=== PATIENT | male | born 1955 | race Two or more races ===

== ENCOUNTER 2016-07-19 20:26 | Inpatient (IN) | payer MEDICAID ==
[~2016-07-19] VITALS: Ht 175.3 cm; Wt 80.3 kg
[2016-07-19] MEDS ORDERED: IV NS 0.9% 1,000 ML BAG IV ONE ×2 (21:00→22:30)
[2016-07-19 21:12] LABS: ADD UA MICROSCOPIC YES; KETONES,URINE Negative (NEGATIVE); LEUKOCYTE ESTERASE ,URINE Large (NEGATIVE)
[2016-07-19 21:22] LABS: ADD URINE CULTURE YES; RBC,URINE 21-50 /HPF (0-2); WBC,URINE 51-80 /HPF (0-3)
[2016-07-19 22:22] LABS: BASOPHILS # (AUTO) 0.1 /CMM (0.0-0.2); BASOPHILS % (AUTO) 0.7 % (0.0-2.0); DIFF TOTAL % 100 %; EOSINOPHILS # (AUTO) 0.1 /CMM (0.0-0.7); EOSINOPHILS % (AUTO) 0.8 % (0.0-6.0); HEMATOCRIT 40 % (39-51); HEMOGLOBIN 12.9 g/dL (13.5-17.5); LYMPHOCYTES # (AUTO) 2.7 /CMM (0.8-4.8); LYMPHOCYTES % (AUTO) 24.9 % (20.0-44.0); MEAN CORPUSCULAR HEMOGLOBIN 24 PG (26.0-33.0); MEAN CORPUSCULAR HGB CONC 32 g/dl (31.0-36.0); MEAN CORPUSCULAR VOLUME 75 fL (80-96); MONOCYTES # (AUTO) 0.8 /CMM (0.1-1.30); MONOCYTES % (AUTO) 7.2 % (2.0-12.0); NEUTROPHILS # (AUTO) 7.2 /CMM (1.8-8.9); NEUTROPHILS % (AUTO) 66.4 % (43.0-81.0); PLATELET COUNT (AUTO) 422 /CMM (150-450); RED BLOOD CELL COUNT(AUTO) 5.36 MIL/uL (4.5-6.0); WHITE BLOOD COUNT (AUTO) 10.9 K/uL (4.3-11.0)
[2016-07-19] MEDS ORDERED: IV NS 0.9% 250 ML IV ONE (22:27)
[2016-07-19] MEDS ORDERED: CEFTRIAXONE 1GM BAG (ER ONLY) 0 ML IV ONE (22:27)
[2016-07-19] MEDS ORDERED: IV SET PRIMARY 1 EA INFUS.SET MC ONE (22:27)
[2016-07-19] MEDS ORDERED: IV NS 0.9% 1,000 ML ONE (22:27)
[2016-07-19] MEDS ORDERED: VANCOMYCIN 1 GM VIAL ONE (22:27)
[2016-07-19] MEDS ORDERED: IV SET PRIMARY PUMP SET 1 EA INFUS.SET MC ONE (22:28)
[2016-07-19] MEDS ORDERED: CEFTRIAXONE 1GM BAG (ER ONLY) 50 ML IV ONE (22:30)
[2016-07-19] MEDS ORDERED: VANCOMYCIN 1 GM in IV D5W 250 ML IV ONE ×2 (22:30→23:00)
[2016-07-19 22:48] LABS: CALCIUM, SERUM 8.4 mg/dL (8.5-10.1); CREATININE 0.9 mg/dL (0.6-1.3); POTASSIUM 3.2 mmol/L (3.5-5.1)
[2016-07-19] MEDS ORDERED: CIPROFLOXACIN IV RTU 200 ML IV ONE (22:50)
[2016-07-19 22:57] LABS: LACTIC ACID 2.7 mmol/L (0.4-2.0)
[2016-07-19 23:00] VITALS: BP 115/73
[2016-07-19] MEDS ORDERED: CIPROFLOXACIN IV RTU 400 MG in PREMIX 1 EA IV ONE (23:00)
[2016-07-19 23:29] LABS: *LACTIC ACID REFLEX FLAG YES
[2016-07-20] MEDS ORDERED: MAGNESIUM HYDROXIDE 30 ML UDC PO PRN
[2016-07-20] MEDS ORDERED: ZOLPIDEM TARTRATE 5 MG TABLET PO PRN
[2016-07-20] MEDS ORDERED: ONDANSETRON HCL/PF 4 MG/2 ML VIAL IVP PRN
[2016-07-20] MEDS ORDERED: MAG HYDROX/AL HYDROX/SIMETH 30 ML UDC PO PRN
[2016-07-20] MEDS ORDERED: HYDROCODONE/APAP 5/325MG 1 EACH TABLET PO PRN
[2016-07-20] MEDS ORDERED: ENOXAPARIN SODIUM 40 MG/0.4 ML DISP.SYRIN SQ SCH
[2016-07-20] MEDS ORDERED: Z GUARD REMEDY 2 OZ OINT TP PRN
[2016-07-20] MEDS ORDERED: ACETAMINOPHEN 325 MG TABLET PO PRN
[2016-07-20] MEDS ORDERED: ENOXAPARIN SODIUM 40 MG/0.4 ML DISP.SYRIN SQ ONE (00:30)
[2016-07-20] MEDS ORDERED: IV D5W 250 ML IV ONE (00:53)
[2016-07-20] MEDS ORDERED: IV NS 0.9% 1,000 ML ONE (00:54)
[2016-07-20] MEDS ORDERED: SECONDARY IV SET 1 EA INFUS.SET MC ONE ×4 (00:56→20:05)
[2016-07-20] MEDS: IV NS 0.9% 1,000 ML IV PRN ×2 (02:02→15:02)
[2016-07-20] MEDS ORDERED: AMLO10TA2 PO (03:08)
[2016-07-20] MEDS ORDERED: ZINC220T PO (03:08)
[2016-07-20] MEDS ORDERED: ARGI1POW13 PO (03:08)
[2016-07-20] MEDS ORDERED: MAGN400O6 PO (03:08)
[2016-07-20] MEDS ORDERED: INSU100C10 SQ (03:08)
[2016-07-20] MEDS ORDERED: MULT1CAP34 PO (03:08)
[2016-07-20] MEDS ORDERED: ASCO500T9 PO (03:08)
[2016-07-20] MEDS ORDERED: ACET-868 PO (03:08)
[2016-07-20] MEDS ORDERED: FERR-58 PO (03:08)
[2016-07-20] MEDS ORDERED: OMEG500C PO (03:08)
[2016-07-20] MEDS ORDERED: METF-835 PO (03:08)
[2016-07-20] MEDS ORDERED: BISA10SU8 RC (03:08)
[2016-07-20] MEDS ORDERED: CRAN500C5 PO (03:08)
[2016-07-20] MEDS ORDERED: SITA100T PO (03:08)
[2016-07-20] MEDS ORDERED: NA P133E RC (03:08)
[2016-07-20] MEDS ORDERED: HYDR-3326 PO ×2 (03:08)
[2016-07-20] MEDS ORDERED: AMIN30LI2 PO (03:08)
[2016-07-20] MEDS ORDERED: GLIM2TAB2 PO (03:08)
[2016-07-20] MEDS ORDERED: BACL20TA PO (03:08)
[2016-07-20] MEDS ORDERED: BISACODYL SUPP (10 MG) 10 MG/SUPP.RECT SUPP.RECT RC PRN (07:30)
[2016-07-20] MEDS: PANTOPRAZOLE 40 MG TABLET.DR PO SCH (07:30)
[2016-07-20 08:00] VITALS: BP 100/55
[2016-07-20] MEDS: ASCORBIC ACID 500 MG TABLET PO SCH (09:00)
[2016-07-20] MEDS: AMLODIPINE BESYLATE 10 MG TABLET PO SCH (09:00)
[2016-07-20] MEDS: FERROUS SULFATE (325 MG) 325 MG/TAB TABLET PO SCH (09:00)
[2016-07-20 12:11] LABS: BASOPHILS # (AUTO) 0.1 /CMM (0.0-0.2); BASOPHILS % (AUTO) 0.9 % (0.0-2.0); DIFF TOTAL % 100 %; EOSINOPHILS # (AUTO) 0.2 /CMM (0.0-0.7); EOSINOPHILS % (AUTO) 3.7 % (0.0-6.0); HEMATOCRIT 37 % (39-51); LYMPHOCYTES # (AUTO) 2.2 /CMM (0.8-4.8); LYMPHOCYTES % (AUTO) 32.8 % (20.0-44.0); MEAN CORPUSCULAR HEMOGLOBIN 24 PG (26.0-33.0); MEAN CORPUSCULAR HGB CONC 33 g/dl (31.0-36.0); MEAN CORPUSCULAR VOLUME 74 fL (80-96); MONOCYTES # (AUTO) 0.8 /CMM (0.1-1.30); MONOCYTES % (AUTO) 11.5 % (2.0-12.0); NEUTROPHILS # (AUTO) 3.4 /CMM (1.8-8.9); NEUTROPHILS % (AUTO) 51.1 % (43.0-81.0); PLATELET COUNT (AUTO) 399 /CMM (150-450); RED BLOOD CELL COUNT(AUTO) 4.94 MIL/uL (4.5-6.0); WHITE BLOOD COUNT (AUTO) 6.6 K/uL (4.3-11.0)
[2016-07-20 12:26] LABS: ANISOCYTOSIS 2+; BAND % (MANUAL) 2 % (0.0-5.0); EOSINOPHILS % (MANUAL) 4 % (0-4); LYMPHOCYTES % (MANUAL) 32 % (16-48); PLATELET ESTIMATE INCREASED
[2016-07-20 12:27] LABS: HYPOCHROMASIA 1+; MICROCYTOSIS 2+
[2016-07-20 12:29] LABS: CREATININE 0.7 mg/dL (0.6-1.3); PHOSPHORUS 3.1 mg/dL (2.5-4.9); POTASSIUM 2.9 mmol/L (3.5-5.1)
[2016-07-20] MEDS: HYDROGEL DRESSING 90 GM TUBE TP SCH (14:00)
[2016-07-20] MEDS ORDERED: HYDROGEL DRESSING 90 GM TUBE TP PRN (14:00)
[2016-07-20] MEDS: CIPROFLOXACIN IV RTU 400 MG in PREMIX 1 EA IV SCH ×4 (15:03→23:32)
[2016-07-20] MEDS ORDERED: POTASSIUM CHLORIDE 20 MEQ TAB.PRT.SR PO ONE (15:30)
[2016-07-20 16:00] VITALS: BP 101/59
[2016-07-20] MEDS ORDERED: DEXTROSE 50%-WATER 50 ML DISP.SYRIN IV PRN (16:30)
[2016-07-20] MEDS ORDERED: Magnesium 1GM/D5W 100ML PREMIX 100 ML IV ONE (17:00)
[2016-07-20] MEDS: BLOOD SUGAR DIAGNOSTIC 1 EACH STRIP IN SCH ×2 (17:30→21:18)
[2016-07-20 20:00] VITALS: BP 112/68
[2016-07-20] MEDS ORDERED: IV SET PRIMARY PUMP SET 1 EA INFUS.SET MC ONE (20:04)
[2016-07-20] MEDS ORDERED: IV NS 0.9% 250 ML IV ONE (20:05)
[2016-07-20] MEDS: POTASSIUM CL. PREMIX PERIPHER. 50 ML IV SCH ×3 (20:10→23:49)
[2016-07-20] MEDS: ENOXAPARIN SODIUM 40 MG/0.4 ML DISP.SYRIN SQ SCH (20:44)
[2016-07-20] MEDS: INSULIN REGULAR, HUMAN 100 UNIT/ML 3 ML VIAL SQ PRN (21:19)
[2016-07-21] MEDS: POTASSIUM CL. PREMIX PERIPHER. 50 ML IV SCH (01:16)
[2016-07-21] MEDS: BLOOD SUGAR DIAGNOSTIC 1 EACH STRIP IN SCH ×5 (06:27→22:37)
[2016-07-21 07:18] LABS: BASOPHILS # (AUTO) 0.1 /CMM (0.0-0.2); BASOPHILS % (AUTO) 1.1 % (0.0-2.0); DIFF TOTAL % 100 %; EOSINOPHILS # (AUTO) 0.3 /CMM (0.0-0.7); EOSINOPHILS % (AUTO) 5.6 % (0.0-6.0); HEMATOCRIT 41 % (39-51); HEMOGLOBIN 13.3 g/dL (13.5-17.5); LYMPHOCYTES # (AUTO) 2.3 /CMM (0.8-4.8); MEAN CORPUSCULAR HEMOGLOBIN 24 PG (26.0-33.0); MEAN CORPUSCULAR HGB CONC 33 g/dl (31.0-36.0); MEAN CORPUSCULAR VOLUME 74 fL (80-96); MONOCYTES # (AUTO) 0.5 /CMM (0.1-1.30); MONOCYTES % (AUTO) 8.5 % (2.0-12.0); NEUTROPHILS # (AUTO) 2.8 /CMM (1.8-8.9); NEUTROPHILS % (AUTO) 45.8 % (43.0-81.0); PLATELET COUNT (AUTO) 256 /CMM (150-450); RED BLOOD CELL COUNT(AUTO) 5.53 MIL/uL (4.5-6.0)
[2016-07-21] MEDS: PANTOPRAZOLE 40 MG TABLET.DR PO SCH ×2 (07:30→15:44)
[2016-07-21 08:00] VITALS: BP 116/72
[2016-07-21] MEDS: FERROUS SULFATE (325 MG) 325 MG/TAB TABLET PO SCH ×2 (09:00→15:44)
[2016-07-21] MEDS: ASCORBIC ACID 500 MG TABLET PO SCH ×2 (09:00→15:45)
[2016-07-21] MEDS: HYDROGEL DRESSING 90 GM TUBE TP SCH (09:00)
[2016-07-21] MEDS: AMLODIPINE BESYLATE 10 MG TABLET PO SCH ×2 (09:00→15:44)
[2016-07-21] MEDS: NITROFURANTOIN/NITROFURAN MAC 100 MG CAPSULE PO SCH ×2 (11:57→15:43)
[2016-07-21 16:00] VITALS: BP 134/77
[2016-07-21] MEDS ORDERED: IV NS 0.9% 1,000 ML IV PRN (16:14)
[2016-07-21] MEDS ORDERED: DOSING PER PHARMACY-AMIKACI IV XX PRN (17:00)
[2016-07-21] MEDS: INSULIN REGULAR, HUMAN 100 UNIT/ML 3 ML VIAL SQ PRN (17:07)
[2016-07-21] MEDS ORDERED: FEE PK DOSING 1 MIN EA MC ONE (17:16)
[2016-07-21] MEDS ORDERED: AMIKACIN 1,000 MG in IV D5W 100 ML IV SCH (18:00)
[2016-07-21] MEDS ORDERED: SECONDARY IV SET 1 EA INFUS.SET MC ONE (18:10)
[2016-07-21] MEDS: LINEZOLID 600 MG TABLET PO SCH (21:01)
[2016-07-21] MEDS: ENOXAPARIN SODIUM 40 MG/0.4 ML DISP.SYRIN SQ SCH (21:02)
[2016-07-22] MEDS: INSULIN REGULAR, HUMAN 100 UNIT/ML 3 ML VIAL SQ PRN (06:12)
[2016-07-22] MEDS: BLOOD SUGAR DIAGNOSTIC 1 EACH STRIP IN SCH ×2 (06:39→12:00)
[2016-07-22 08:00] VITALS: BP 112/67
[2016-07-22] MEDS: PANTOPRAZOLE 40 MG TABLET.DR PO SCH (08:27)
[2016-07-22 09:00] VITALS: BP 121/67
[2016-07-22] MEDS: ASCORBIC ACID 500 MG TABLET PO SCH (09:00)
[2016-07-22] MEDS: AMLODIPINE BESYLATE 10 MG TABLET PO SCH (09:00)
[2016-07-22] MEDS: FERROUS SULFATE (325 MG) 325 MG/TAB TABLET PO SCH (09:00)
[2016-07-22] MEDS: LINEZOLID 600 MG TABLET PO SCH (09:00)
[2016-07-22] MEDS ORDERED: ACET-868 PO (10:30)
[2016-07-22] MEDS ORDERED: AMIK250V14 IJ (10:30)
[2016-07-22] MEDS ORDERED: LINE600I9 IV (10:30)
[2016-07-22] MEDS ORDERED: HYDR-3326 PO (10:30)
[2016-07-22] MEDS ORDERED: LACTOBACILLUS RHAMNOSUS GG 1 EACH CAP.SPRINK PO SCH (17:00)
== END 2016-07-22 13:38 | DRG 720 ==
LOC: ER 20:31 → MED 22:29
PROVIDERS: ADMIT Internal Medicine; ATTEND Internal Medicine
DX: A41.9 Sepsis, unspecified organism (principal); L89.159 Pressure ulcer of sacral region, unspecified stage; J18.9 Pneumonia, unspecified organism; E11.22 Type 2 diabetes mellitus with diabetic chronic kidney disease; N39.0 Urinary tract infection, site not specified; I12.9 Hypertensive chronic kidney disease with stage 1 through stage 4 chronic kidney disease, or unspecified chronic kidney disease; N18.9 Chronic kidney disease, unspecified; R65.20 Severe sepsis without septic shock; D63.8 Anemia in other chronic diseases classified elsewhere; B96.89 Other specified bacterial agents as the cause of diseases classified elsewhere; E78.5 Hyperlipidemia, unspecified; Z88.1 Allergy status to other antibiotic agents; E87.6 Hypokalemia; Z79.4 Long term (current) use of insulin; B96.20 Unspecified Escherichia coli [E. coli] as the cause of diseases classified elsewhere; N31.9 Neuromuscular dysfunction of bladder, unspecified
CPT/HCPCS: 36415; 71010-TC; 80048-TC; 81000-TC; 82962-TC; 83605-TC; 83735-TC; 84100-TC; 85025-TC; 87040-TC; 87081-TC; 87086-TC; 87186-TC; A4216; A4606; A6248; A6253; A6403; J0278; J0696; J0744; J1650; J1815; J3370; J3475; J3480; J7030; J7050; J7060; Z7610

== ENCOUNTER 2018-06-05 18:30 | Inpatient (IN) | payer MEDICAID ==
[~2018-06-05] VITALS: Ht 165.1 cm; Wt 79.5 kg
[~2018-06-05 18:30] MED LIST: ACET-868 PO; AMIK250V14 IJ; AMIN30LI2 PO; AMLO10TA6 PO; ARGI1POW13 PO; ASCO500T9 PO; BACL20TA PO; BISA10SU8 RC; CRAN500C5 PO; FERR325T27 PO; GLIM2TAB2 PO; HYDR-3974 PO; INSU100C10 SQ; LINE600I9 IV; MAGN400O6 PO; METF-835 PO; MULT1CAP34 PO; NA P133E RC; OMEG500C PO; SITA100T PO; ZINC220T PO
--- NOTE | 2018-06-05 18:40 | NUR ---
BIB RA FROM SNF 63 YEAR OLD MALE C/O SUPRAPUBIC DISLODGED SINCE 2:30PM AND PAINFUL URINATION. ALERT AND ORIENTED X4, BREATHING EVEN AND UNLABORED WITH NO DISTRESS NOTED. SKIN WARM TO TOUCH, AWAITING TO BE SEEN BY
--- NOTE | 2018-06-05 19:10 | NUR ---
REINSERT SUPRAPUBIC CATH WITH CHARGE NURSE, URINE AMOUNT OF 400ML. PATIENT REFUSED LABS AND URINE SAMPLE.
--- NOTE | 2018-06-05 19:10 | NUR ---
Olegario londono in EDM - 06/05/18 at 1936 by DELORIS YESY SUPRAPUBIC CATH, CONTINUE TO MONITOR URINE AMOUNT. SAMPLE TAKEN AND SENT TO LAB.
--- NOTE | 2018-06-05 19:22 | NUR ---
PT REFUSED LABS. NOTIFIED
--- NOTE | 2018-06-05 19:26 | NUR ---
PATIENT REFUSED LAB DRAW AND URINE SAMPLE COLLECTIONS. RADU MENCHACA MADE AWARE
--- NOTE | 2018-06-05 19:30 | NUR ---
PT STATED THAT HE FELT TOO HOT. BLANKET REMOVED AND PT HAS A SHEET COVERING HIM.
--- NOTE | 2018-06-05 19:31 | NUR ---
CALLED [facility] FOR TRANSPORT ETA OF 2100 WAS GIVEN. TRIP#[id number]
--- NOTE | 2018-06-05 19:37 | NUR ---
PATIENT REMAINS STABLE WITH NO DISTRESS NOTED.
--- NOTE | 2018-06-05 19:45 | NUR ---
PT REC'D COLD WATER REQUESTED.
--- NOTE | 2018-06-05 21:04 | NUR ---
CALLED [facility] TO ASK FOR UPDATED ETA. UPDATED ETA IS 1919
--- NOTE | 2018-06-05 21:17 | NUR ---
[facility] ARRIVED AND PT'S BP IS NOW READING 80/49. BP WAS CHECKED A FEW TIMES.
--- NOTE | 2018-06-05 21:26 | NUR ---
B PAWEL ANDERSON NOTIFIED THAT PT IS HYPOTENSIVE. B PAWEL ANDERSON IS AT THE BEDSIDE.
--- NOTE | 2018-06-05 21:33 | NUR ---
Chapo ANDERSON PA-C IS SPEAKING TO DR. STEPHENS.
[2018-06-05] MEDS ORDERED: IV NS 0.9% 1,000 ML BAG IV ONE ×2 (22:00→23:00)
--- NOTE | 2018-06-05 22:03 | NUR ---
20G IV STARTED IN [facility] BY ALEJANDRO ZEPEDA. STRAIGHT LINE EDGER IS AT THE BEDSIDE BLOOD CULTURES X 2 DRAWN AND BLOOD SAMPLES DRAWN. URINE SAMPLE SENT TO THE LAB.
[2018-06-05 22:23] LABS: BASOPHILS # (AUTO) 0.2 /CMM (0.0-0.2); BASOPHILS % (AUTO) 1.4 % (0.0-2.0); EOSINOPHILS % (AUTO) 1.1 % (0.0-6.0); HEMATOCRIT 45 % (39-51); HEMOGLOBIN 14.6 g/dL (13.5-17.5); LYMPHOCYTES # (AUTO) 2.4 /CMM (0.8-4.8); LYMPHOCYTES % (AUTO) 14.6 % (20.0-44.0); MEAN CORPUSCULAR HGB CONC 33 g/dl (31.0-36.0); MEAN CORPUSCULAR VOLUME 87 fL (80-96); MONOCYTES # (AUTO) 0.9 /CMM (0.1-1.30); MONOCYTES % (AUTO) 5.5 % (2.0-12.0); NEUTROPHILS # (AUTO) 12.8 /CMM (1.8-8.9); NEUTROPHILS % (AUTO) 77.4 % (43.0-81.0); PLATELET COUNT (AUTO) 432 /CMM (150-450); RED BLOOD CELL COUNT(AUTO) 5.18 MIL/uL (4.5-6.0); WHITE BLOOD COUNT (AUTO) 16.6 K/uL (4.3-11.0)
[2018-06-05 22:26] LABS: APPEARANCE,URINE SL CLOUDY (CLEAR); BILIRUBIN,URINE NEGATIVE (NEGATIVE); BLOOD, URINE 3+ Ery/uL (NEGATIVE); COLOR,URINE YELLOW (YELLOW); KETONES,URINE NEGATIVE (NEGATIVE); LEUKOCYTE ESTERASE ,URINE 1+ (NEGATIVE); NITRITE, URINE NEGATIVE (NEGATIVE); PROTEIN,URINE 3+ mg/dl (NEGATIVE); UGLUCOSE 1+ mg/dL (NEGATIVE); UROBILINOGEN,URINE 0.2 EU/dL (0.2)
--- NOTE | 2018-06-05 22:35 | NUR ---
PT APPEARS TO BE RESTING COMFORTABLY WITH NO S/S OF PAIN OR DISTRESS.
[2018-06-05 22:41] LABS: BACTERIA,URINE Few /HPF (None Seen); CALCIUM, SERUM 8.9 mg/dL (8.5-10.1); CARBON DIOXIDE 25 mmol/L (21-32); CHLORIDE 100 mmol/L (98-107); CREATININE 1.4 mg/dL (0.6-1.3); GLUCOSE 245 mg/dL (74-106); POTASSIUM 4.7 mmol/L (3.5-5.1); RBC,URINE 21-50 /HPF (0-2); SODIUM SERUM 139 mmol/L (136-145); SQUAMOUS EPITHELIAL CELL,UR Rare /HPF (None Seen); UREA NITROGEN, BLOOD 24 mg/dL (7-18); WBC,URINE TOO NUMEROUS TO COUN /HPF (0-3)
[2018-06-05 22:46] LABS: ALANINE AMINOTRANSFERASE 23 U/L (12-78); ALBUMIN 3.4 g/dL (3.4-5.0); ALKALINE PHOSPHATASE 102 U/L (46-116); ASPARTATE AMINOTRANSFERASE 20 U/L (15-37); BILIRUBIN,DIRECT 0.1 mg/dL (0.0-0.2); BILIRUBIN,TOTAL 0.3 mg/dL (0.2-1.0); TOTAL PROTEIN, SERUM 8.7 g/dL (6.4-8.2)
[2018-06-05] MEDS ORDERED: CIPROFLOXACIN IV RTU 400 MG in PREMIX 1 EA IV ONE (23:00)
[2018-06-05] MEDS ORDERED: CIPROFLOXACIN IV RTU 200 ML IV ONE (23:03)
--- NOTE | 2018-06-05 23:25 | NUR ---
CALLED [employer] ENVIRONMENTAL FIELD OFFICE MANAGER WAS PAGED.
--- NOTE | 2018-06-05 23:46 | NUR ---
REPORT GIVEN TO ALEJANDRO RED QUITA.
--- NOTE | 2018-06-05 23:47 | NUR ---
REPORT GIVEN TO ALEJANDRO RED AND REASSESSMENT OF SEPSIS PT AFTER FLUID BOLUS FINISHES ENDORSED TO ALEJANDRO RED .
[2018-06-06] VITALS (7 sets, daily range): BP systolic 102–156; BP diastolic 61–96
[2018-06-06] MEDS ORDERED: AMIKACIN 250 MG/ML VIAL IV SCH
[2018-06-06] MEDS ORDERED: ACETAMINOPHEN 650 MG/SUPP.RECT RC PRN
[2018-06-06] MEDS ORDERED: HYDROCODONE/APAP 5/325MG 1 EACH TABLET PO PRN ×2
[2018-06-06] MEDS ORDERED: ONDANSETRON HCL/PF 4 MG/2 ML VIAL IVP PRN
[2018-06-06] MEDS ORDERED: MAGNESIUM HYDROXIDE 30 ML UDC PO PRN
[2018-06-06] MEDS ORDERED: ACETAMINOPHEN 325 MG TABLET PO PRN ×2
--- NOTE | 2018-06-06 | NUR ---
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, GERD, SUPRAPUBIC CATH SACRAL P.I, H/O SEPTIC SHOCK, ANEMIA, AFEBRILE WITH VS 97.5, 102, 20, 156/96, 0/10, AWAKE A/O X4 ABLE TO VERBALIZED NEEDS AND CONCERNS, BREATHING EVEN AND UNLABORED, NO SOB.ACUTE DISTRESS NOTED AT THIS TIME, ABDOMEN SOFT, SLIGHTLY DISTENDED, SUP CATH IN PLACE DRAINING, YELLOW CLEAR URINE, PATENCY INTACT, PIV RIGHT AC, INFUSING STILL IVF AND CIPRO ATB IV AT THIS TIME, NO S/S OF INFILTRATION AT SITE, BED BATH GIVEN UPON ADMISSION, SACRA AND BUTTOCKS P.I AND REDNESS, PERINEAL, GROIN, AND SCROTUM REDNESS AND EXCORIATION, RIGHT MALLEOLUS P.I, CALL LIGHT W/I REACH, DRY AND CLEAN, WILL CONTINUE TO MONITOR CLOSELY,
[2018-06-06] MEDS ORDERED: *INSULIN REGULAR(HUMULIN R)HUM 100 UNIT/ML VIAL SQ PRN (00:30)
[2018-06-06] MEDS ORDERED: DEXTROSE 50%-WATER 50 ML DISP.SYRIN IV PRN (00:30)
[2018-06-06] MEDS: IV NS 0.9% 1,000 ML IV SCH ×3 (01:15→21:13)
--- NOTE | 2018-06-06 06:43 | NUR ---
MS RN CLOSING NOTE, PATIENT IN BED SLEEPING AT THIS TIME, BUT EASILY AROUSABLE TO VERBAL STIMULI NO SOB/ ACUTE DISTRESS NOTED AT THIS TIME, NO COMPLAIN OF PAIN OR DISCOMFORT NOTED AT THIS TIME, RIGHT AC IV ACCESS 20G, PATENT AND INTACT, IVF INFUSING WELL AND TOLERATED WELL, NO S/S OF INFILTRATION NOTED AT SITE, ALL NEEDS PROVIDED, NO SIGNIFICANT CHANGE IN CONDITION THROUGHOUT THE NIGHT, LAST LACTIC ACID FROM MIDNIGHT DROPPED FROM 6.6 TO 3.3, CALL LIGHT WITHIN REACH, WILL ENDORSE TO ONCOMING NURSE FOR CONTINUITY OF CARE.
[2018-06-06] MEDS: BLOOD SUGAR DIAGNOSTIC 1 EACH STRIP VI SCH ×4 (08:08→22:34)
[2018-06-06] MEDS: PANTOPRAZOLE 40 MG VIAL IV SCH (08:09)
[2018-06-06] MEDS: ZINC SULFATE 220 MG CAPSULE PO SCH (08:10)
[2018-06-06] MEDS: ASCORBIC ACID 500 MG TABLET PO SCH (08:10)
[2018-06-06] MEDS: MULTIVITAMINS,THERAGRAN 1 UDTAB TABLET PO SCH (08:10)
[2018-06-06] MEDS: FERROUS SULFATE (325 MG) 325 MG/TAB TABLET PO SCH (08:10)
[2018-06-06] MEDS: INSULIN REGULAR, HUMAN 100 UNIT/ML 3 ML VIAL SQ PRN (08:15)
[2018-06-06] MEDS ORDERED: Medication Not On Formulary EA (Omega-3 Fatty Acids (Fish Oil) 1,000 MG) PO SCH (09:00)
[2018-06-06] MEDS: NA PHOS,M-B/NA PHOS,DI-BA 1 EA ENEMA RC SCH ×2 (09:00→10:12)
[2018-06-06] MEDS: BACLOFEN (10 MG) 10 MG TABLET PO SCH ×4 (09:00→17:00)
[2018-06-06] MEDS ORDERED: Medication Not On Formulary EA (Arginine/Ascorbate Sod/Vite AC (Arginaid Powder) 1 EACH) PO SCH (09:00)
[2018-06-06] MEDS: PROSOURCE / PROSTAT (PYXIS) 30 ML UDC PO SCH ×3 (09:00→12:08)
[2018-06-06] MEDS ORDERED: Medication Not On Formulary EA (Cranberry Extract (Cranberry Concentrate) 1,680 MG) PO SCH (09:00)
[2018-06-06] MEDS ORDERED: Medication Not On Formulary EA (Multivitamins (Multivitamin) 1 EACH) PO SCH (09:00)
[2018-06-06 10:02] LABS: BASOPHILS # (AUTO) 0.2 /CMM (0.0-0.2); BASOPHILS % (AUTO) 1.8 % (0.0-2.0); EOSINOPHILS % (AUTO) 4.5 % (0.0-6.0); HEMATOCRIT 40 % (39-51); HEMOGLOBIN 13.2 g/dL (13.5-17.5); LYMPHOCYTES # (AUTO) 2.9 /CMM (0.8-4.8); LYMPHOCYTES % (AUTO) 26.7 % (20.0-44.0); MEAN CORPUSCULAR HGB CONC 33 g/dl (31.0-36.0); MEAN CORPUSCULAR VOLUME 87 fL (80-96); MONOCYTES # (AUTO) 0.8 /CMM (0.1-1.30); MONOCYTES % (AUTO) 7.7 % (2.0-12.0); NEUTROPHILS # (AUTO) 6.5 /CMM (1.8-8.9); NEUTROPHILS % (AUTO) 59.3 % (43.0-81.0); PLATELET COUNT (AUTO) 353 /CMM (150-450); RED BLOOD CELL COUNT(AUTO) 4.65 MIL/uL (4.5-6.0)
[2018-06-06 10:22] LABS: THYROID STIMULATING HORMONE 0.456 uIU/mL (0.358-3.74)
[2018-06-06 10:36] LABS: CALCIUM, SERUM 8.3 mg/dL (8.5-10.1); CREATININE 0.9 mg/dL (0.6-1.3); MAGNESIUM 1.4 mg/dL (1.8-2.4); PHOSPHORUS 3.9 mg/dL (2.5-4.9)
[2018-06-06] MEDS ORDERED: NA PHOS,M-B/NA PHOS,DI-BA 1 EA ENEMA RC PRN (11:00)
--- NOTE | 2018-06-06 11:32 | NUR ---
WOUND CARE CONSULT: PT FOLLOWED BY PLASTIC SURGICAL TEAM FOR WOUND CARE. DEFER TO SURGICAL TEAM FOR WOUND TREATMENT PLAN. ALL PRESSURE ULCER PREVENTION MEASURES IN PLACE AND DISCUSSED WITH NURSING STAFF. WILL SEE PRN. CURRENT DANE SCORE IS 10.
[2018-06-06] MEDS ORDERED: Z GUARD REMEDY 2 OZ OINT TP PRN (12:00)
[2018-06-06] MEDS: LEVOFLOXACIN 750 MG /D5W 150ML 150 ML IV SCH (12:10)
--- NOTE | 2018-06-06 12:13 | NUR ---
WOUND CARE CONSULT: CORRECTION TO PREVIOUS WOUND CARE NOTE: PT NOT FOLLOWED BY PLASTIC SURGERY TEAM. PT SEEN FOR WOUND/SKIN ASSESSMENT. 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 PT NOTED TO HAVE SUPRAPUBIC CATH. CURRENT DANE SCORE IS 10. PT HAS PARAPLEGIA. FIRST STEP LOW AIRLOSS MATTRESS ORDERED. ALL SKIN PROTECTION AND WOUND CARE RECOMMENDATIONS DISCUSSED WITH NURSING STAFF. WILL SEE PRN. SURGICAL CONSULT RECOMMENDED. MD IN AGREEMENT WITH PLAN OF CARE. Addendum: 06/06/18 at 1216 by BUD FIELDS WNDNU Amended: Links added.
[2018-06-06] MEDS: DAKINS QUARTER STRENGTH (0.125%) 480 ML BOTTLE TOP SCH (13:29)
[2018-06-06] MEDS: Z GUARD REMEDY 2 OZ OINT TP SCH (13:29)
[2018-06-06] MEDS: CLOTRIMAZOLE/BETAMETASONE DIPROPIONATE 15 GM TUBE TP SCH (17:52)
[2018-06-06] MEDS: Magnesium 1GM/D5W 100ML PREMIX 100 ML IV SCH ×4 (19:09→21:50)
[2018-06-06] MEDS ORDERED: BISACODYL SUPP (10 MG) 10 MG/SUPP.RECT SUPP.RECT RC PRN ×2 (22:00)
[2018-06-07 04:00] VITALS: BP 115/54
[2018-06-07 04:40] VITALS: BP 115/54
--- NOTE | 2018-06-07 07:25 | NUR ---
MS/RN OPENING NOTE THE PATIENT IS RECEIVED IN BED AWAKE. ALERT AND ORIENTED X4. THE PATIENT DENIES PAIN AT THIS TIME. RESPIRATION REGULAR AND UNLABORED. DENIES SOB. SUPRAPUBIC CATH IN PLACE. RIGHT FOREARM G 20 PATENT AND NORMAL SALINE INFUSING WITH NO S/S INFILTRATION. BED LOW AND LOCKED SIDE RAILS UP X3. CALL LIGHT WITHIN REACH. WILL CONTINUE TO MONITOR.
[2018-06-07 08:00] VITALS: BP 103/58
[2018-06-07] MEDS: ZINC SULFATE 220 MG CAPSULE PO SCH (08:19)
[2018-06-07] MEDS: ASCORBIC ACID 500 MG TABLET PO SCH (08:19)
[2018-06-07] MEDS: FERROUS SULFATE (325 MG) 325 MG/TAB TABLET PO SCH (08:19)
[2018-06-07] MEDS: MULTIVITAMINS,THERAGRAN 1 UDTAB TABLET PO SCH (08:19)
[2018-06-07] MEDS: BACLOFEN (10 MG) 10 MG TABLET PO SCH ×2 (08:19→12:25)
[2018-06-07] MEDS: PANTOPRAZOLE 40 MG VIAL IV SCH (08:19)
[2018-06-07] MEDS: IV NS 0.9% 1,000 ML IV SCH (08:30)
[2018-06-07] MEDS: CLOTRIMAZOLE/BETAMETASONE DIPROPIONATE 15 GM TUBE TP SCH (08:32)
[2018-06-07] MEDS: BLOOD SUGAR DIAGNOSTIC 1 EACH STRIP VI SCH ×2 (08:33→12:19)
[2018-06-07] MEDS: Z GUARD REMEDY 2 OZ OINT TP SCH (08:33)
[2018-06-07] MEDS: DAKINS QUARTER STRENGTH (0.125%) 480 ML BOTTLE TOP SCH (08:33)
[2018-06-07] MEDS: PROSOURCE / PROSTAT (PYXIS) 30 ML UDC PO SCH (10:38)
[2018-06-07] MEDS ORDERED: LEVO500T90 PO (10:44)
[2018-06-07] MEDS ORDERED: CLOT15CR5 TP (10:44)
[2018-06-07 12:00] VITALS: BP 120/80
[2018-06-07] MEDS: INSULIN REGULAR, HUMAN 100 UNIT/ML 3 ML VIAL SQ PRN (12:21)
[2018-06-07] MEDS: LEVOFLOXACIN 750 MG /D5W 150ML 150 ML IV SCH (12:22)
[2018-06-07 16:00] VITALS: BP 93/57
--- NOTE | 2018-06-07 16:25 | NUR ---
MS/RN CLOSING NOTE THE PATIENT ALERT AND ORIENTED X4. DENIES SOB. RESPIRATION REGULAR AND UNLABORED. OXYGEN SATURATION IN ROOM AIR AT 95%. DENIES PAIN. THE PATIENT IN NO APPARENT DISTRESS. DISCHARGE EDUCATION GIVEN TO THE PATIENT AND HE VERBALIZED UNDERSTANDING. REFUSED PICTURES TO BE TAKEN UPON DISCHARGE SAYING " THEY TOOK THE PHOTOS RECENTLY." REPORT GIVEN TO RECEIVING NURSE RINKU. PATIENT IN STABLE CONDITION. THE PATIENT IS GETTING PICKED UP BY 2 director manufacturing engineering.
== END 2018-06-07 16:36 | DRG 466 ==
LOC: ER 18:34 → TELE1 23:11 → TELE-TD 06-06 00:19 → MEDSG1 06-06 09:45
PROVIDERS: ADMIT Registered Nurse; ATTEND Student in an Organized Health Care Education/Training Program
PROC: 0T2BX0Z Change Drainage Device in Bladder, External Approach (ICD-10-PCS; principal; 2018-06-05)
DX: T83.510A Infection and inflammatory reaction due to cystostomy catheter, initial encounter (principal); R65.21 Severe sepsis with septic shock; A41.9 Sepsis, unspecified organism; G82.50 Quadriplegia, unspecified; G92 Toxic encephalopathy; L89.154 Pressure ulcer of sacral region, stage 4; E87.2 Acidosis; E11.22 Type 2 diabetes mellitus with diabetic chronic kidney disease; E66.9 Obesity, unspecified; N18.9 Chronic kidney disease, unspecified; N39.0 Urinary tract infection, site not specified; D63.8 Anemia in other chronic diseases classified elsewhere; K21.9 Gastro-esophageal reflux disease without esophagitis; I12.9 Hypertensive chronic kidney disease with stage 1 through stage 4 chronic kidney disease, or unspecified chronic kidney disease; E11.65 Type 2 diabetes mellitus with hyperglycemia; N31.9 Neuromuscular dysfunction of bladder, unspecified; E78.1 Pure hyperglyceridemia; B96.5 Pseudomonas (aeruginosa) (mallei) (pseudomallei) as the cause of diseases classified elsewhere; B96.89 Other specified bacterial agents as the cause of diseases classified elsewhere; Z79.84 Long term (current) use of oral hypoglycemic drugs; Z68.29 Body mass index [BMI] 29.0-29.9, adult; Y84.8 Other medical procedures as the cause of abnormal reaction of the patient, or of later complication, without mention of misadventure at the time of the procedure; Y92.129 Unspecified place in nursing home as the place of occurrence of the external cause; Y73.8 Miscellaneous gastroenterology and urology devices associated with adverse incidents, not elsewhere classified; L03.311 Cellulitis of abdominal wall; Z91.19 Patient's noncompliance with other medical treatment and regimen
CPT/HCPCS: 36415; 71045-TC; 80048-TC; 80061-TC; 80076-TC; 81000-TC; 82962-TC; 83605-TC; 83735-TC; 84100-TC; 84443-TC; 84484-TC; 85025-TC; 85730-TC; 87040-TC; 87081-TC; 87086-TC; 87186-TC; A4216; A4606; C9113; G0378; J0278; J0744; J1815; J1956; J3475; J7030; J7040; Z7610

== ENCOUNTER 2018-09-29 09:33 | Emergency (ER) | payer MEDICAID ==
[~2018-09-29] VITALS: Ht 167.6 cm; Wt 76.7 kg
[~2018-09-29 09:33] MED LIST changes: -AMLO10TA6 PO; +AMLO10TA7 PO; +CLOT15CR5 TP; +LEVO500T90 PO
--- NOTE | 2018-09-29 09:40 | NUR ---
aaox3, bb private ems from [facility]: suprapubic cath pulled out this am ~0700. rr is even and unlabored with nad noted. skin is warm and dry. awaiting md for eval.
[2018-09-29] MEDS ORDERED: BLOO-668 IN (09:58)
[2018-09-29] MEDS ORDERED: DULO20CA PO (09:58)
[2018-09-29] MEDS ORDERED: FAMO20TA8 PO (09:58)
[2018-09-29] MEDS ORDERED: INSU100V28 SQ (09:58)
[2018-09-29] MEDS ORDERED: INSU100V7 SQ (09:58)
[2018-09-29] MEDS ORDERED: HYDR-4384 PO ×2 (09:58)
[2018-09-29] MEDS ORDERED: ACET-868 PO (09:58)
[2018-09-29] MEDS ORDERED: MIDO5TAB PO (09:58)
--- NOTE | 2018-09-29 10:14 | NUR ---
called transport spoke with emeka julio is [phone] trip number is [id number]
--- NOTE | 2018-09-29 10:43 | NUR ---
Patient discharged to [facility] in stable condition going [facility] to [facility]. Written and verbal after care instructions given. Patient verbalized understanding of instruction.
[2018-09-29 10:48] VITALS: BP 110/99
== END 2018-09-29 10:48 | disposition home or self-care (01) ==
LOC: ER 09:36
DX: T83.018A Breakdown (mechanical) of other urinary catheter, initial encounter (principal); I10 Essential (primary) hypertension; K21.9 Gastro-esophageal reflux disease without esophagitis; G82.50 Quadriplegia, unspecified; E78.5 Hyperlipidemia, unspecified; E66.9 Obesity, unspecified; Z98.890 Other specified postprocedural states; Z79.4 Long term (current) use of insulin; Z88.1 Allergy status to other antibiotic agents; Z88.2 Allergy status to sulfonamides; Z88.0 Allergy status to penicillin

== ENCOUNTER 2019-10-16 17:19 | Inpatient (IN) | payer MEDICAID, OTHER ==
[~2019-10-16] VITALS: Ht 172.7 cm; Wt 76.9 kg
[~2019-10-16 17:19] MED LIST changes: -AMIK250V14 IJ; -AMLO10TA7 PO; -ARGI1POW13 PO; +ASCO-352 PO; -ASCO500T9 PO; +BLOO-668 IN; -CLOT15CR5 TP; -CRAN500C5 PO; +DULO20CA PO; +FAMO20TA8 PO; -GLIM2TAB2 PO; +GLIM2TAB31 PO; -HYDR-3974 PO; +HYDR-4384 PO; -INSU100C10 SQ; +INSU100V28 SQ; +INSU100V7 SQ; -LEVO500T90 PO; -LINE600I9 IV; +MIDO5TAB4 PO; -ZINC220T PO
[2019-10-16 18:00] LABS: BASOPHILS % (AUTO) 0.4 % (0.0-2.0); EOSINOPHILS % (AUTO) 0.2 % (0.0-6.0); HEMATOCRIT 35 % (39-51); HEMOGLOBIN 11.7 g/dL (13.5-17.5); LYMPHOCYTES # (AUTO) 1.6 /CMM (0.8-4.8); LYMPHOCYTES % (AUTO) 14.1 % (20.0-44.0); MEAN CORPUSCULAR HGB CONC 33 g/dl (31.0-36.0); MEAN CORPUSCULAR VOLUME 87 fL (80-96); MONOCYTES # (AUTO) 0.4 /CMM (0.1-1.30); MONOCYTES % (AUTO) 3.4 % (2.0-12.0); NEUTROPHILS # (AUTO) 9.1 /CMM (1.8-8.9); NEUTROPHILS % (AUTO) 81.9 % (43.0-81.0); PLATELET COUNT (AUTO) 309 /CMM (150-450); RED BLOOD CELL COUNT(AUTO) 4.04 MIL/uL (4.5-6.0); WHITE BLOOD COUNT (AUTO) 11.1 K/uL (4.3-11.0)
[2019-10-16 18:02] LABS: APPEARANCE,URINE Turbid (CLEAR); BILIRUBIN,URINE Negative (NEGATIVE); BLOOD, URINE Moderate Ery/uL (NEGATIVE); COLOR,URINE Yellow (YELLOW); KETONES,URINE Negative (NEGATIVE); LEUKOCYTE ESTERASE ,URINE Large (NEGATIVE); NITRITE, URINE Negative (NEGATIVE); PH,URINE 7.5 (5.0-8.0); PROTEIN,URINE 100 mg/dl (NEGATIVE); UGLUCOSE Negative (NEGATIVE); UROBILINOGEN,URINE 0.2 EU/dL (0.2)
[2019-10-16 18:08] LABS: CALCIUM, SERUM 8.2 mg/dL (8.5-10.1); CREATININE 1.5 mg/dL (0.6-1.3); POTASSIUM 3.4 mmol/L (3.5-5.1)
[2019-10-16 18:14] LABS: BACTERIA,URINE Many /HPF (None Seen); SQUAMOUS EPITHELIAL CELL,UR Few /HPF (None Seen); WBC,URINE TOO NUMEROUS TO COUN /HPF (0-3)
--- NOTE | 2019-10-16 18:18 | NUR ---
[facility] FROM [facility] TO ER BED 7. AAOX3. TACHYPNEIC. BEDBOUND. BROUGHT ON FOR SOB. PER REPORT, PT HAS BEEN HAVING FLU LIKE SYMPTOMS FOR THE PAST WEEK. PT WAS TESTED FOR COVID AT THE [facility] BUT STILL NO RESULT. TEMP WAS NOTED AT 99.7 - ORAL. PT HAS SUPRA PUBIC CATH. PT WAS NOTED WITH 02 SAT @ 92% ON RA. PLACED ON 2 LPM O2, SATTIN GAT 97%. WAS AT BEDSIDE FOR EVAL. ORDERS RECEIVED NOTED AND CARRIED OUT. IV LINE OBTAINED ON THE R AC 2OG. BLOOD DRAWN AND GIVEN TO HEAD BANQUET WAITRESS AT BEDSIDE. URINE COLLECTED. SWABBED FOR FLU. WILL CONTINUE TO MONITOR PT.
[2019-10-16 18:20] LABS: BILIRUBIN,TOTAL 0.5 mg/dL (0.2-1.0); TOTAL PROTEIN, SERUM 8.2 g/dL (6.4-8.2)
[2019-10-16] MEDS: VANCOMYCIN 1 GM in IV D5W 250 ML IV ONE ×2 (18:28→18:49)
[2019-10-16] MEDS ORDERED: AZTREONAM 1 G in IV NS 0.9% 100 ML IV ONE (18:30)
[2019-10-16 18:33] LABS: ABG BASE EXCESS -2.6 mmol/L; ABG OXYGEN SATURATION 96.2 % (92.0-98.5); ABG PCO2 33.9 mmHg (35.0-45.0); ABG PH 7.416 (7.350-7.450); ABG PO2 90.4 mmHg (75.0-100.0); AaDO2 191.9 mmHg; COHb 0.3 % (0.5-1.5); MetHb 0.3 % (0.0-1.5); O2Hb 95.6 % (94.0-97.0); SITE, ABG Right Brachial
--- NOTE | 2019-10-16 18:36 | NUR ---
PHARMACY CALLED FOR ATB
[2019-10-16 18:44] LABS: D-DIMER 11.52 mg/L(FEU (0.17-0.50)
--- NOTE | 2019-10-16 18:58 | NUR ---
SPOKE WITH MOI MOELLER OUTPATIENT SURGERY RN FOR CLINICALS. VERBAL AUTH RECEIVED, TRACKING NUMBER: [id number]
[2019-10-16 19:28] LABS: C-REACTIVE PROTEIN 24.6 mg/dL (0.0-0.9)
--- NOTE | 2019-10-16 19:39 | NUR ---
PANEL PAGED PER ER MD ORDER.
--- NOTE | 2019-10-16 19:44 | NUR ---
ER TALKING TO NIKI SIDHU REGARDING PT ADMISSION.
--- NOTE | 2019-10-16 19:53 | NUR ---
R AC 20G FOUND DISLODGE. NEW IV LINE OBTAINED ON L HAND 22G.
--- NOTE | 2019-10-16 20:40 | NUR ---
REPORT GIVEN TO ALEJANDRO HU FOR TRISHA
--- NOTE | 2019-10-16 20:40 | NUR ---
COVID SWAB DONE AND SENT TO LAB.
--- NOTE | 2019-10-16 22:09 | NUR ---
PT TRANSPORTED TO UNIT ON [facility] WITH EMT AND RN AT BEDSIDE USING ACLS PROTOCOL. NAD NOTED DURING TRANSPORT.
[2019-10-16] MEDS ORDERED: ONDANSETRON HCL/PF 4 MG/2 ML VIAL IVP PRN (22:30)
[2019-10-16] MEDS ORDERED: Z GUARD REMEDY 2 OZ OINT TP PRN (22:30)
[2019-10-16] MEDS ORDERED: ZOLPIDEM TARTRATE 5 MG TABLET PO PRN (22:30)
[2019-10-16] MEDS ORDERED: IV NS 0.9% 1,000 ML IV PRN (22:30)
--- NOTE | 2019-10-16 22:45 | NUR ---
RN ADMITTING NOTES RECEIVED REPORT FROM GRANITE COUNTERTOP INSTALLER PRINCESS. Pt ARRIVED PER ACLS PROTOCOL ON ER [facility]. Pt IS A/OX4, VERBAL, TEL[place]U SPEAKING BUT ALSO UNDERSTANDS UPPER SORBIAN. Pt CAME FROM [facility]. ON TELE MONITOR. SUPRAPUBIC CATHETER IN PLACE AND DRAINING WELL. IV ACCESS ON LHAND #22G, COVID TEST SWAB TAKEN IN ER. NO S/S OF ACUTE DISTRESS OR SOB NOTED. SAFETY MEASURES IN PLACE. BED LOW, LOCKED, HOB ELEVATED, SIDE RAILS UP, CALL LIGHT AND BEDSIDE TABLE WITHIN REACH. WILL CONTINUE TO MONITOR Pt's CONDITION AND SAFETY THROUGHOUT THE NIGHT.
[2019-10-16] MEDS: IV NS 0.9% 1,000 ML IV PRN (23:10)
[2019-10-17] VITALS (7 sets, daily range): BP systolic 82–117; BP diastolic 46–81
--- NOTE | 2019-10-17 01:40 | NUR ---
RN NOTES Pt PASSED NURSE SWALLOW EVAL. Pt WAS ABLE TO DRINK FLUIDS WELL WITH NO PROBLEMS.
--- NOTE | 2019-10-17 04:05 | NUR ---
RN NOTES Pt REFUSED FOR VS TO BE TAKEN AT THIS TIME. Pt SAID THAT HE WANTS US TO LEAVE HIM ALONE, AND LET HIM SLEEP.
[2019-10-17] MEDS ORDERED: LEVOFLOXACIN 500 MG /D5W 100ML 100 ML IV ONE (05:08)
[2019-10-17] MEDS: LEVOFLOXACIN 500 MG /D5W 100ML 500 MG in PREMIX 1 EA IV SCH (05:17)
--- NOTE | 2019-10-17 06:45 | NUR ---
RN NOTES AC ACCUCHECK BG 154. SINCE Pt WAS ADMITTED AFTER PHARMACY WAS CLOSED, NO INSULIN FOR Pt IS AVAILABLE AT THIS TIME. ALSO, UPON ADMISSION Pt's BG WAS TOO LOW @ 66. Pt HAS NOT EATEN YET.
[2019-10-17 06:54] LABS: BASOPHILS % (AUTO) 0.1 % (0.0-2.0); HEMATOCRIT 31 % (39-51); HEMOGLOBIN 10.3 g/dL (13.5-17.5); LYMPHOCYTES # (AUTO) 1.3 /CMM (0.8-4.8); MEAN CORPUSCULAR HGB CONC 34 g/dl (31.0-36.0); MEAN CORPUSCULAR VOLUME 86 fL (80-96); MONOCYTES # (AUTO) 0.2 /CMM (0.1-1.30); MONOCYTES % (AUTO) 1.7 % (2.0-12.0); NEUTROPHILS # (AUTO) 11.9 /CMM (1.8-8.9); NEUTROPHILS % (AUTO) 88.2 % (43.0-81.0); PLATELET COUNT (AUTO) 288 /CMM (150-450); RED BLOOD CELL COUNT(AUTO) 3.56 MIL/uL (4.5-6.0); WHITE BLOOD COUNT (AUTO) 13.5 K/uL (4.3-11.0)
[2019-10-17 06:57] LABS: CALCIUM, SERUM 7.9 mg/dL (8.5-10.1); CREATININE 1.2 mg/dL (0.6-1.3); MAGNESIUM 1.6 mg/dL (1.8-2.4); PHOSPHORUS 3.6 mg/dL (2.5-4.9); POTASSIUM 3.3 mmol/L (3.5-5.1)
[2019-10-17] MEDS ORDERED: DEXTROSE 50%-WATER 50 ML DISP.SYRIN IV PRN (07:00)
--- NOTE | 2019-10-17 07:25 | NUR ---
RN CLOSING NOTES NO SIGNIFICANT CHANGES IN Pt's CONDITION. Pt IS RESTING COMFORTABLY IN BED, WATCHING TV. ALL NEEDS MET AND ATTENDED TO. NO S/S OF ACUTE DISTRESS OR SOB NOTED DURING THE NIGHT. SAFETY MEASURES IN PLACE. TELE READING SR 75. WILL ENDORSE TO DAYSHIFT RN FOR Pt's TRISHA.
--- NOTE | 2019-10-17 07:32 | NUR ---
rn opening notes Patient received on 4L nasal cannula, on tele. L Hand 22 gauge @ NS 100 ml per hour. Suprapubic cath present and is draining. Bed at the lowest setting, call light within reach, side rails up x2.
[2019-10-17] MEDS: BLOOD SUGAR DIAGNOSTIC 1 EACH STRIP IN SCH ×4 (07:37→22:17)
[2019-10-17] MEDS ORDERED: MULT-447 PO (08:13)
[2019-10-17] MEDS ORDERED: DOCU-141 PO (08:13)
[2019-10-17] MEDS ORDERED: SENN-261 PO (08:13)
[2019-10-17] MEDS ORDERED: INSU100V27 SQ (08:13)
[2019-10-17] MEDS ORDERED: METF-440 PO (08:13)
[2019-10-17] MEDS ORDERED: DULO30CA52 PO (08:13)
[2019-10-17] MEDS ORDERED: FENO48TA6 PO (08:13)
[2019-10-17] MEDS ORDERED: ALOG25TA2 PO (08:13)
[2019-10-17] MEDS ORDERED: IV NS 0.9% 1,000 ML IV PRN (08:28)
[2019-10-17] MEDS: POTASSIUM CHLORIDE 20 MEQ TAB.PRT.SR PO SCH ×3 (09:08→11:19)
[2019-10-17] MEDS: Magnesium 1GM/D5W 100ML PREMIX 100 ML IV SCH ×2 (09:08→10:19)
[2019-10-17] MEDS: INSULIN REGULAR, HUMAN 100 UNIT/ML 3 ML VIAL SQ PRN ×3 (11:23→22:20)
[2019-10-17] MEDS: IV NS 0.9% 1,000 ML IV PRN (12:56)
[2019-10-17] MEDS ORDERED: IV NS 0.9% 500 ML IV ONE (13:00)
[2019-10-17] MEDS ORDERED: Potassium Chloride 40 MEQ in IV NS 0.9% 1,000 ML IV PRN (14:24)
[2019-10-17] MEDS: HYDROXYCHLOROQUINE 200 MG TABLET PO SCH ×2 (14:47→21:37)
[2019-10-17] MEDS: ACETAMINOPHEN 325 MG TABLET PO PRN (16:27)
--- NOTE | 2019-10-17 18:05 | NUR ---
rn closing notes Patient remains on 4L nasal cannula, L hand 22 gauge with NS 100 ml per hour. insulin coverage given. Patient positive for COVID. Bed at the lowest setting, call light within reach, side rails up x2. Will give report to NOC RN for TRISHA bedside.
--- NOTE | 2019-10-17 19:32 | NUR ---
UTILITY SYSTEMS REPAIRER OPERATOR NOTES PATIENT RECEIVED RESTING IN BED A/O X 4, URDU AND CZECH SPEAKING. ON 4L OF O2 VIA NC WITH BREATHING EVEN AND UNLABORED, NO SOB NOTED. NO SIGNS OF ACUTE DISTRESS. NO COMPLAINTS OF PAIN OR DISCOMFORT AT THE MOMENT. TELE MONITOR READ SR. SUPRAPUBIC NOTED AND IN PLACE DRAINING. IV LOCATED ON LA HAND #22 RUNNING NS @ 100 ML/HR. SAFETY PRECAUTIONS IN PLACE WITH BED IN LOWEST POSITION, CALL LIGHT WITHIN REACH, BREAKS ON. WILL CONTINUE TO MONITOR THROUGHOUT THE NIGHT.
--- NOTE | 2019-10-18 00:25 | NUR ---
CONTROL EQUIPMENT ELECTRICIAN NOTES PATIENT REFUSED TO BE REPOSITIONED, CLAIMS IT MAKES HIM 'UNCOMFORTABLE'. EXPLAINED TO PATIENT BENEFITS OF BEING REPOSITIONED, ESPECIALLY FOR HIS SACRAL REDNESS BUT PT STILL REFUSED. WILL CONTINUE TO MONITOR.
[2019-10-18] MEDS: LEVOFLOXACIN 500 MG /D5W 100ML 500 MG in PREMIX 1 EA IV SCH (05:30)
[2019-10-18] MEDS: INSULIN REGULAR, HUMAN 100 UNIT/ML 3 ML VIAL SQ PRN ×3 (06:31→22:05)
[2019-10-18] MEDS: BLOOD SUGAR DIAGNOSTIC 1 EACH STRIP IN SCH ×4 (06:34→21:56)
--- NOTE | 2019-10-18 06:44 | NUR ---
SOCIAL WORK PROFESSOR CLOSING NOTES PATIENT RECEIVED RESTING IN BED A/O X 4, SAUDI ARABIAN AND BELARUSIAN SPEAKING. ON 5L OF O2 VIA NC WITH BREATHING EVEN AND UNLABORED, NO SOB NOTED. NO SIGNS OF ACUTE DISTRESS. NO COMPLAINTS OF PAIN OR DISCOMFORT AT THE MOMENT. TELE MONITOR READ SR. SUPRAPUBIC NOTED AND IN PLACE DRAINING- CLEAR YELLOW. IV LOCATED ON R HAND #22 RUNNING KCL 40MEQ @ 750 ML/HR. SAFETY PRECAUTIONS IN PLACE WITH BED IN LOWEST POSITION, CALL LIGHT WITHIN REACH, BREAKS ON. ALL NEEDS ATTENDED TO. PATIENT WAS KEPT CLEAN AND DRY THROUGHOUT THE NIGHT. PATIENT REFUSED TO BE REPOSITIONED. WILL ENDORSE TO ONCOMING SHIFT ABOUT TRISHA.
--- NOTE | 2019-10-18 07:10 | NUR ---
TELE/RN NOTES PROCALCITONIN 3.58 MD IS AWARE
--- NOTE | 2019-10-18 07:31 | NUR ---
WOUND CARE CONSULT: REVIEWED NURSING DOCUMENTATION INCLUDING PHOTOS FROM ADMISSION AND SPOKE WITH NURSING STAFF. PER RN, PT HAS SACRAL WOUND, LEFT BUTTOCK WOUND, INCISION/SCAR TO HIP/LEG AND POSSIBLE LESION TO SCROTUM, PRESENT ON ADMISSION. RECOMMEND SURGICAL CONSULT. DR MARROQUIN TO BE CONSULTED FOR SURGICAL CONSULT. FIRST STEP LOW AIRLOSS MATTRESS ORDERED. SKIN PROTECTION RECOMMENDATIONS DISCUSSED WITH NURSING STAFF. MD IN AGREEMENT WITH PLAN OF CARE.
--- NOTE | 2019-10-18 07:37 | NUR ---
TELE/RN OPENING NOTES PATIENT RECEIVED RESTING IN BED A/O X 4, WELSH AND SOUTH SUDANESE SPEAKING. ON 5L OF O2 VIA NC WITH BREATHING EVEN AND UNLABORED, NO SOB NOTED. NO SIGNS OF ACUTE DISTRESS. NO COMPLAINTS OF PAIN OR DISCOMFORT AT THE MOMENT. TELE MONITOR READ SR. SUPRAPUBIC NOTED AND IN PLACE DRAINING- CLEAR YELLOW. IV LOCATED ON R HAND #22 RUNNING KCL 40MEQ. SAFETY PRECAUTIONS IN PLACE WITH BED IN LOWEST POSITION, CALL LIGHT WITHIN REACH, BREAKS ON. WILL CONTINUE TO MONITOR.
[2019-10-18 07:46] LABS: BASOPHILS % (AUTO) 0.4 % (0.0-2.0); EOSINOPHILS % (AUTO) 0.1 % (0.0-6.0); HEMATOCRIT 32 % (39-51); HEMOGLOBIN 10.6 g/dL (13.5-17.5); LYMPHOCYTES # (AUTO) 1.5 /CMM (0.8-4.8); MEAN CORPUSCULAR HGB CONC 33 g/dl (31.0-36.0); MEAN CORPUSCULAR VOLUME 88 fL (80-96); MONOCYTES # (AUTO) 0.3 /CMM (0.1-1.30); MONOCYTES % (AUTO) 2.6 % (2.0-12.0); NEUTROPHILS % (AUTO) 81.9 % (43.0-81.0); PLATELET COUNT (AUTO) 334 /CMM (150-450); RED BLOOD CELL COUNT(AUTO) 3.63 MIL/uL (4.5-6.0); WHITE BLOOD COUNT (AUTO) 9.7 K/uL (4.3-11.0)
[2019-10-18 07:51] LABS: CALCIUM, SERUM 8.1 mg/dL (8.5-10.1); CREATININE 1.2 mg/dL (0.6-1.3); POTASSIUM 3.7 mmol/L (3.5-5.1)
[2019-10-18 07:57] LABS: ALBUMIN 2.3 g/dL (3.4-5.0); BILIRUBIN,TOTAL 0.3 mg/dL (0.2-1.0); MAGNESIUM 2.1 mg/dL (1.8-2.4); PHOSPHORUS 2.9 mg/dL (2.5-4.9); TOTAL PROTEIN, SERUM 6.8 g/dL (6.4-8.2)
[2019-10-18 08:00] VITALS: BP 107/64
[2019-10-18 08:08] LABS: THYROID STIMULATING HORMONE 0.406 uIU/mL (0.358-3.74); URIC ACID 6.6 mg/dL (2.6-7.2)
[2019-10-18] MEDS: HYDROXYCHLOROQUINE 200 MG TABLET PO SCH ×2 (08:25→16:38)
[2019-10-18 08:30] LABS: CREATININE 1.1 mg/dL (0.6-1.3); POTASSIUM 3.8 mmol/L (3.5-5.1)
--- NOTE | 2019-10-18 12:18 | NUR ---
CARLOS/ALEJANDRO CROOKS BS 160MG/DL Addendum: 10/18/19 at 1225 by MARIMAR KELLY RN DUPLICATE
--- NOTE | 2019-10-18 12:25 | NUR ---
TELE/RN NOTES BS 160 MG/DL ADMINISTERED 2 UNIT INSULIN
[2019-10-18] MEDS: IV NS 0.9% 1,000 ML IV PRN (14:26)
[2019-10-18 16:00] VITALS: BP 102/67
[2019-10-18] MEDS: ACETAMINOPHEN 325 MG TABLET PO PRN (16:38)
--- NOTE | 2019-10-18 16:41 | NUR ---
TELE/RN NOTES PATIENT COMPLAINED OF BODY PAIN 4/10 RATE TYLENOL 650MG WAS ADMINISTERED.
[2019-10-18] MEDS ORDERED: DOSING PER PHARMACY-AMIKACI IV XX PRN (18:00)
--- NOTE | 2019-10-18 18:13 | NUR ---
TELE/RN NOTES PATIENT WITH MRSA NARES [facility] CALLED BY ADRIANNA. IS AWARE.
[2019-10-18] MEDS ORDERED: FEE PK DOSING 1 MIN EA MC ONE (18:19)
[2019-10-18] MEDS: HYDROGEL DRESSING 90 GM TUBE TP SCH (18:24)
--- NOTE | 2019-10-18 18:33 | NUR ---
MS/RN CLOSING NOTES PATIENT RESTING IN BED A/O X 4, BAHAMIAN AND CHADIAN SPEAKING. ON 5L OF O2 VIA NC WITH BREATHING EVEN AND UNLABORED, NO SOB NOTED. NO SIGNS OF ACUTE DISTRESS. NO COMPLAINTS OF PAIN OR DISCOMFORT AT THE MOMENT. TELE MONITOR READ SR 65. SUPRAPUBIC NOTED AND IN PLACE DRAINING- CLEAR YELLOW. IV LOCATED ON R HAND #22. IV FLUID OF NS1L AT 100ML/HR. SEEN AND EXAMINED BY MD WITH ORDERS MADE AND CARRIED OUT. ALL DUE MEDS WAS GIVEN. SAFETY PRECAUTIONS IN PLACE WITH BED IN LOWEST POSITION, CALL LIGHT WITHIN REACH, BREAKS ON. WILL ENDORSED TO GREY ROLL MAN FOR TRISHA.
[2019-10-18] MEDS ORDERED: AMIKACIN 1,000 MG in IV D5W 100 ML IV ONE (19:00)
--- NOTE | 2019-10-18 19:57 | NUR ---
RECORDS ANALYSIS MANAGER OPENING NOTES PATIENT RECEIVED RESTING IN BED A/O X 4, BELIZEAN AND GERMAN SPEAKING. ON 5L OF O2 VIA NC WITH BREATHING EVEN AND UNLABORED, NO SOB NOTED. NO SIGNS OF ACUTE DISTRESS. NO COMPLAINTS OF PAIN OR DISCOMFORT AT THE MOMENT. TELE MONITOR READ SR 64. SUPRAPUBIC NOTED AND IN PLACE DRAINING. IV LOCATED ON LA HAND #22 RUNNING NS @ 100 ML/HR. SAFETY PRECAUTIONS IN PLACE WITH BED IN LOWEST POSITION, CALL LIGHT WITHIN REACH, BREAKS ON. WILL CONTINUE TO MONITOR THROUGHOUT THE NIGHT.
[2019-10-18 20:00] VITALS: BP 117/81
[2019-10-18] MEDS: MUPIROCIN OINT 2% 22 GM TUBE SCH (21:39)
[2019-10-19] VITALS: BP 133/84
[2019-10-19] MEDS: ACETAMINOPHEN 325 MG TABLET PO PRN ×3 (00:27→20:30)
[2019-10-19] MEDS: IV NS 0.9% 1,000 ML IV PRN ×2 (01:31→12:10)
[2019-10-19 04:00] VITALS: BP_SYST 131; BP_DIAS 98; BP_DIAS 99
[2019-10-19] MEDS: BLOOD SUGAR DIAGNOSTIC 1 EACH STRIP IN SCH ×4 (06:44→22:31)
--- NOTE | 2019-10-19 06:49 | NUR ---
AUTOMOTIVE SALES ASSOCIATE CLOSING NOTES PATIENT RESTING IN BED A/O X 4, SLOVENIAN AND VIETNAMESE SPEAKING. ON 5L OF O2 VIA NC WITH BREATHING EVEN AND UNLABORED, NO SOB NOTED. NO SIGNS OF ACUTE DISTRESS. NO COMPLAINTS OF PAIN OR DISCOMFORT AT THE MOMENT. TELE MONITOR READ SR 97. SUPRAPUBIC NOTED AND IN PLACE DRAINING CLEAR YELLOW URINE. IV LOCATED ON LA HAND #22 RUNNING NS @ 100 ML/HR. SAFETY PRECAUTIONS IN PLACE WITH BED IN LOWEST POSITION, CALL LIGHT WITHIN REACH, BREAKS ON. ALL NEEDS ATTENDED TO. PATIENT KEPT CLEAN AND DRY THROUGHOUT THE NIGHT. WILL ENDORSE TO ONCOMING SHIFT ABOUT TRISHA.
[2019-10-19 07:14] LABS: BASOPHILS # (AUTO) 0.1 /CMM (0.0-0.2); BASOPHILS % (AUTO) 0.5 % (0.0-2.0); EOSINOPHILS % (AUTO) 1.8 % (0.0-6.0); HEMATOCRIT 34 % (39-51); HEMOGLOBIN 11.3 g/dL (13.5-17.5); LYMPHOCYTES % (AUTO) 25.9 % (20.0-44.0); MEAN CORPUSCULAR HGB CONC 33 g/dl (31.0-36.0); MEAN CORPUSCULAR VOLUME 87 fL (80-96); MONOCYTES # (AUTO) 0.5 /CMM (0.1-1.30); MONOCYTES % (AUTO) 4.1 % (2.0-12.0); NEUTROPHILS # (AUTO) 7.8 /CMM (1.8-8.9); NEUTROPHILS % (AUTO) 67.7 % (43.0-81.0); PLATELET COUNT (AUTO) 466 /CMM (150-450); RED BLOOD CELL COUNT(AUTO) 3.91 MIL/uL (4.5-6.0); WHITE BLOOD COUNT (AUTO) 11.6 K/uL (4.3-11.0)
[2019-10-19 07:20] LABS: CALCIUM, SERUM 8.3 mg/dL (8.5-10.1); POTASSIUM 3.7 mmol/L (3.5-5.1)
--- NOTE | 2019-10-19 07:35 | NUR ---
CONTROL AND RECOVERY COMBAT RESCUE OPENING NOTES RECEIVED PATIENT RESTING IN BED AWAKE, A/O X 3. PT ON SUPPLEMENTARY OXYGEN AT 2-3LPM VIA NC. PT DENIES PAIN OR DISCOMFORT AT THE MOMENT. ON TELEMONITORING WITH SR 80. IVF NS AT 100ML/HR TO RIGHT HAND, INTACT AND OPERATIONAL. SUPRAPUBIC CATH IN PLACE, WITH CLEAR YELLOW URINE. PT KEPT COMFORTABLE IN BED. CALL LIGHT KEPT WITHIN REACH. PT;S BED IN LOWEST, LOCKED, POSITION WITH SRX3. WILL CONTINUE PLAN OF CARE.
[2019-10-19] MEDS: HYDROXYCHLOROQUINE 200 MG TABLET PO SCH ×2 (08:17→16:37)
[2019-10-19] MEDS: MUPIROCIN OINT 2% 22 GM TUBE SCH ×2 (08:29→21:02)
[2019-10-19] MEDS: HYDROGEL DRESSING 90 GM TUBE TP SCH (08:30)
[2019-10-19 08:40] VITALS: BP 125/71
--- NOTE | 2019-10-19 10:16 | NUR ---
GUM SPRAYER NOTES SEEN AND EVALUATED BY HOSPITALIST/DT, MADE AWARE ABOUT PT'S CONCERN TO BE DISCHARGE. HOSPITALIST/DT EXPLAINED TO PT WHY HE CAN'T AT THIS TIME. PT UNDERSTOOD. NO NEW ORDERS NOTED AT THIS TIME. WILL CONTINUE TO MONITOR.
[2019-10-19] MEDS ORDERED: POTASSIUM CHLORIDE 20 MEQ TAB.PRT.SR PO SCH (11:00)
[2019-10-19 11:48] LABS: C-REACTIVE PROTEIN 23.2 mg/dL (0.0-0.9)
[2019-10-19] MEDS ORDERED: BISACODYL SUPP (10 MG) 10 MG/SUPP.RECT SUPP.RECT RC PRN (12:00)
[2019-10-19] MEDS: INSULIN REGULAR, HUMAN 100 UNIT/ML 3 ML VIAL SQ PRN (12:02)
[2019-10-19 12:30] VITALS: BP 110/58
[2019-10-19 17:57] VITALS: BP 125/88
--- NOTE | 2019-10-19 19:15 | NUR ---
RN OPENING NOTES Received patient A/O x4, awake on bed. On O2 inhalation via NC @ 5LPM, saturating well, no SOB/respiratory distress noted at this time. No complaints made at this time. Kept on bed clean, dry and comfortable. Call light within easy reach. On fall and aspiration precautions. Will continue to monitor accordingly.
--- NOTE | 2019-10-19 19:37 | NUR ---
HOT SEALING MACHINE OPERATOR CLOSING NOTES PT REMAINS IN BED AWAKE, A/O X 3. PT ON SUPPLEMENTARY OXYGEN AT 3LPM VIA NC, WITH NO ACUTE RESPIRATORY DISTRESS. PT DENIES PAIN OR DISCOMFORT AT THE MOMENT. ON TELEMONITORING WITH SR 84. IVF NS AT 100ML/HR TO RIGHT HAND, INTACT AND OPERATIONAL. SUPRAPUBIC CATH IN PLACE, WITH CLEAR YELLOW URINE. PT KEPT COMFORTABLE IN BED. ALL NEEDS AND CARE ATTENDED AND PROVIDED. CALL LIGHT KEPT WITHIN REACH. PT'S BED IN LOWEST, LOCKED, POSITION WITH SRX3. ENDORSED TO INCOMING NIGHT NURSE FOR TRISHA.
[2019-10-19] MEDS: AMIKACIN 1,000 MG in IV D5W 100 ML IV SCH (20:19)
[2019-10-19 20:56] VITALS: BP 143/80
--- NOTE | 2019-10-19 22:00 | NUR ---
RN NOTES Received call from lab, spoke with Diasy: Quantiferon TB Gold Plus was missed to draw by lab. notified, reordered for tomorrow 10/20/2019 at 1500.
[2019-10-20] VITALS: BP 140/91
[2019-10-20 04:00] VITALS: BP 136/73
[2019-10-20 04:32] VITALS: BP 125/75
--- NOTE | 2019-10-20 06:37 | NUR ---
RN CLOSING NOTES Patient asleep, easily awaken. On O2 inhalation via NC @ 5LPM, saturating well, no SOB/respiratory distress noted. Afebrile the whole shift. All nursing needs attended, due meds given as ordered. On tele monitor with NSR noted. No new unusualities noted. Kept on bed clean, dry and comfortable. On fall and aspiration precautions. Endorsed.
--- NOTE | 2019-10-20 07:50 | NUR ---
CURTAIN WORKER OPENING NOTE PATIENT IN BED RESTING COMFORTABLY. PATIENT IN NO ACUTE DISTRESS. NO SOB NOTED. PATIENT BREATHING IS EVEN AND UNLABORED. PATIENT BREATHING ON OXYGEN NC AT 5L, SATURATING WELL. PATIENT HOB IS ELEVATED. BED ALARM IS ON. PATIENT SAFETY PRECAUTIONS IN PLACE. PATIENT ON CARDIAC MONITORING READING SINUS RHYTHM HR 83. PATIENT BED IS LOCKED AND IN LOWEST POSITION. CALL LIGHT WITHIN REACH. WILL CONTINUE TO MONITOR.
[2019-10-20] MEDS: HYDROXYCHLOROQUINE 200 MG TABLET PO SCH ×2 (08:06→16:45)
[2019-10-20] MEDS: BLOOD SUGAR DIAGNOSTIC 1 EACH STRIP IN SCH ×4 (08:07→23:00)
[2019-10-20] MEDS: HYDROGEL DRESSING 90 GM TUBE TP SCH (08:14)
[2019-10-20] MEDS: MUPIROCIN OINT 2% 22 GM TUBE SCH ×2 (08:14→20:13)
--- NOTE | 2019-10-20 08:15 | NUR ---
ASSEMBLER HANDBAGS NOTE PATIENT BLOOD SUGAR 116 AT THIS TIME. NO INSULIN NEEDED PER PROTOCOL.
[2019-10-20] MEDS: IV NS 0.9% 1,000 ML IV PRN (12:01)
[2019-10-20] MEDS: INSULIN REGULAR, HUMAN 100 UNIT/ML 3 ML VIAL SQ PRN ×3 (12:09→23:32)
[2019-10-20 16:00] VITALS: BP 109/62
[2019-10-20 16:48] LABS: BASOPHILS # (AUTO) 0.1 /CMM (0.0-0.2); BASOPHILS % (AUTO) 0.7 % (0.0-2.0); EOSINOPHILS % (AUTO) 2.1 % (0.0-6.0); HEMATOCRIT 31 % (39-51); HEMOGLOBIN 10.5 g/dL (13.5-17.5); LYMPHOCYTES # (AUTO) 1.5 /CMM (0.8-4.8); LYMPHOCYTES % (AUTO) 17.9 % (20.0-44.0); MEAN CORPUSCULAR HGB CONC 34 g/dl (31.0-36.0); MEAN CORPUSCULAR VOLUME 87 fL (80-96); MONOCYTES # (AUTO) 0.5 /CMM (0.1-1.30); NEUTROPHILS # (AUTO) 6.2 /CMM (1.8-8.9); NEUTROPHILS % (AUTO) 73.3 % (43.0-81.0); PLATELET COUNT (AUTO) 477 /CMM (150-450); WHITE BLOOD COUNT (AUTO) 8.5 K/uL (4.3-11.0)
[2019-10-20 19:01] LABS: CALCIUM, SERUM 7.7 mg/dL (8.5-10.1); CREATININE 0.9 mg/dL (0.6-1.3); POTASSIUM 3.2 mmol/L (3.5-5.1)
--- NOTE | 2019-10-20 19:10 | NUR ---
FLOWER SHOP MANAGER OPENING NOTES PATIENT AWAKE IN BED. A/OX4. ABLE TO VERBALIZE NEEDS. ON 5L NC. NO S/S OF ACUTE RESPIRATORY DISTRESS OR C/O PAIN AT THIS TIME. DROPLET/CONTACT ISOLATION IN PLACE FOR POSITIVE COVID 19. TELE MONITOR READING NSR, HEART RATE 81. IV PRESENT ON RIGHT HAND, SIZE 22, INTACT & PATENT WITH NS RUNNING AT NS 100ML/HR. SUPRAPUBIC CATH PRESENT, INTACT & PATENT, 1000 ML OF CLEAR YELLOW URINE PRESENT. SAFETY MEASURES IN PLACE. BED LOCKED, ALARM ON, HOB ELEVATED, SIDE RAILS X3, CALL LIGHT WITHIN REACH. WILL CONTINUE TO MONITOR.
--- NOTE | 2019-10-20 19:48 | NUR ---
PRECISION MACHINE OPERATOR CLOSING NOTE PATIENT IN BED RESTING COMFORTABLY. PATIENT IN NO ACUTE DISTRESS. NO SOB NOTED. PATIENT BREATHING IS EVEN AND UNLABORED. PATIENT BREATHING ON OXYGEN NC AT 5L, SATURATING >94% SPO2. PATIENT HOB IS ELEVATED. BED ALARM IS ON. PATIENT SAFETY PRECAUTIONS IN PLACE. PATIENT ON CARDIAC MONITORING READING SINUS RHYTHM HR 90. PATIENT KEPT CLEAN DRY AND COMFORTABLE THROUGHOUT SHIFT. NEEDS AND CONCERNS ADDRESSED. PATIENT TURNED AND REPOSITIONED Q2H. WOUND CARE PROVIDED ORDERED. PATIENT BED IS LOCKED AND IN LOWEST POSITION. CALL LIGHT WITHIN REACH. WILL ENDORSE CARE TO PM SHIFT FOR TRISHA.
[2019-10-20 20:00] VITALS: BP 116/66
[2019-10-20 20:51] VITALS: BP 116/66
[2019-10-21] VITALS (8 sets, daily range): BP systolic 108–163; BP diastolic 64–110
[2019-10-21 05:15] LABS: FREE PSA < 0.06 ng/mL (0.00-45); PROSTATE SPECIFIC ANTIGEN SCR 0.31 ng/mL (0.00-4.00)
[2019-10-21] MEDS: BLOOD SUGAR DIAGNOSTIC 1 EACH STRIP IN SCH ×4 (07:43→21:37)
[2019-10-21] MEDS: INSULIN REGULAR, HUMAN 100 UNIT/ML 3 ML VIAL SQ PRN ×3 (07:43→21:48)
--- NOTE | 2019-10-21 07:44 | NUR ---
TELE/RN NOTES BS 183MG/DL ADMINISTERED 3 UNIT INSULIN
--- NOTE | 2019-10-21 07:55 | NUR ---
PATTERN DESIGNER CLOSING NOTES PATIENT AWAKE IN BED. A/OX4. ON 5L NC. NO S/S OF ACUTE RESPIRATORY DISTRESS OR C/O PAIN AT THIS TIME. TELE MONITOR READING NSR. IV PRESENT ON RIGHT HAND, SIZE 22, INTACT & PATENT WITH NS RUNNING AT NS 100ML/HR. SUPRAPUBIC CATH REMAINS INTACT AND PATENT. SAFETY MEASURES IN PLACE. BED LOCKED, ALARM ON, HOB ELEVATED, SIDE RAILS X3, CALL LIGHT WITHIN REACH. WILL ENDORSE TO DAY SHIFT NURSE PLAN OF CARE.
--- NOTE | 2019-10-21 07:57 | NUR ---
TELE/RN OPENING NOTES RECEIVED PATIENT IN BED RESTING COMFORTABLY. PATIENT IN NO ACUTE DISTRESS. NO SOB NOTED. PATIENT BREATHING IS EVEN AND UNLABORED. PATIENT BREATHING ON OXYGEN NC AT 5L. PATIENT HOB IS ELEVATED. BED ALARM IS ON. PATIENT SAFETY PRECAUTIONS IN PLACE. PATIENT ON CARDIAC MONITORING READING. PATIENT KEPT CLEAN DRY AND COMFORTABLE THROUGHOUT SHIFT. PATIENT BED IS LOCKED AND IN LOWEST POSITION. CALL LIGHT WITHIN REACH. WILL CONTINUE TO MONITOR.
[2019-10-21 08:08] LABS: ALBUMIN 2.3 g/dL (3.4-5.0); BILIRUBIN,TOTAL 0.7 mg/dL (0.2-1.0); CALCIUM, SERUM 8.1 mg/dL (8.5-10.1); CREATININE 0.9 mg/dL (0.6-1.3); PHOSPHORUS 2.4 mg/dL (2.5-4.9); POTASSIUM 3.3 mmol/L (3.5-5.1); TOTAL PROTEIN, SERUM 7.6 g/dL (6.4-8.2)
[2019-10-21 08:11] LABS: BASOPHILS # (AUTO) 0.1 /CMM (0.0-0.2); BASOPHILS % (AUTO) 0.7 % (0.0-2.0); EOSINOPHILS % (AUTO) 1.9 % (0.0-6.0); HEMATOCRIT 34 % (39-51); HEMOGLOBIN 11.2 g/dL (13.5-17.5); LYMPHOCYTES # (AUTO) 2.2 /CMM (0.8-4.8); LYMPHOCYTES % (AUTO) 19.5 % (20.0-44.0); MAGNESIUM 1.2 mg/dL (1.8-2.4); MEAN CORPUSCULAR HGB CONC 33 g/dl (31.0-36.0); MEAN CORPUSCULAR VOLUME 87 fL (80-96); MONOCYTES # (AUTO) 0.7 /CMM (0.1-1.30); NEUTROPHILS % (AUTO) 71.9 % (43.0-81.0); PLATELET COUNT (AUTO) 562 /CMM (150-450); RED BLOOD CELL COUNT(AUTO) 3.87 MIL/uL (4.5-6.0); WHITE BLOOD COUNT (AUTO) 11.2 K/uL (4.3-11.0)
[2019-10-21 08:23] LABS: C-REACTIVE PROTEIN 26.4 mg/dL (0.0-0.9)
[2019-10-21] MEDS ORDERED: K PHOS NEUTRAL 250 MG TABLET PO ONE (08:30)
[2019-10-21] MEDS ORDERED: POTASSIUM CHLORIDE 20 MEQ TAB.PRT.SR PO ONE (08:30)
[2019-10-21] MEDS ORDERED: Magnesium 1GM/D5W 100ML PREMIX 100 ML IV SCH (08:45)
[2019-10-21] MEDS ORDERED: POTASSIUM CHLORIDE 20 MEQ TAB.PRT.SR PO SCH ×2 (09:00)
[2019-10-21] MEDS ORDERED: POTASSIUM PHOSPHATE MM 15 MMOL in IV NS 0.9% 250 ML IV SCH (09:00)
[2019-10-21] MEDS: MUPIROCIN OINT 2% 22 GM TUBE SCH ×2 (09:25→21:59)
[2019-10-21] MEDS: HYDROGEL DRESSING 90 GM TUBE TP SCH (09:25)
[2019-10-21] MEDS: HYDROXYCHLOROQUINE 200 MG TABLET PO SCH ×2 (09:25→16:42)
[2019-10-21] MEDS: Magnesium 1GM/D5W 100ML PREMIX 100 ML IV SCH ×4 (10:03→12:29)
[2019-10-21 10:16] LABS: BAND % (MANUAL) 1 % (0.0-5.0); LYMPHOCYTES % (MANUAL) 29 % (16-48); MONOCYTES % (MANUAL) 3 % (0-11.0); NEUTROPHILS % (MANUAL) 67 (42-76)
--- NOTE | 2019-10-21 11:33 | NUR ---
TELE/RN NOTES PATIENT REFUSED TO CHECKED THE BLOOD SUGAR FOR 1200, EXPLAINED THE RISK AND BENEFITS. PATIENT STILL REFUSING.
--- NOTE | 2019-10-21 18:32 | NUR ---
rn closing notes patient remains on 5L nasal cannula, no sob noted, patient denies pain at this time. Patient remains on suprapubic cath and is draining. R hand with 22 NS @ 100 ml per hour. insulin tested and coverage given. Bed changed as ordered. Bed at the lowest setting, call light within reach, side rails up x2. Will give report to NOC RN for TRISHA bedside.
--- NOTE | 2019-10-21 19:28 | NUR ---
RN OPENING NOTES RECEIVED PATIENT AWAKE IN BED. A/OX3. NO SIGNS OF DISTRESS OR DISCOMFORT. BREATHING EVEN AND UNLABORED. ON 5LPM O2 VIA NC. IV ACCESS IN R HAND, PATENT AND INTACT, NO SIGNS OF REDNESS OR INFILTRATION. HAS SUPRAPUBIC CATH INTACT DRAINING CLEAR YELLOW FLUID. BED IN OW LOCKED POSITION WITH SIDE RAILS X2. HOB ELEVATED. CALL LIGHT WITHIN REACH. WILL CONTINUE TO MONITOR.
[2019-10-21] MEDS: AMIKACIN 1,000 MG in IV D5W 100 ML IV SCH (22:47)
[2019-10-22] VITALS (8 sets, daily range): BP systolic 82–163; BP diastolic 51–100
[2019-10-22] MEDS: BLOOD SUGAR DIAGNOSTIC 1 EACH STRIP IN SCH ×4 (06:26→21:59)
--- NOTE | 2019-10-22 07:30 | NUR ---
MEDIA ANALYST OPENING NOTES RECEIVED PT IN BED, ASLEEP, EASILY AROUSED, A/OX2-3. PT ON SUPPLEMENTARY OXYGEN AT 5L VIA NC, WITH NO ACUTE RESPIRATORY DISTRESS NOTED. ON TELEMONITORING NSR 67. PT DENIES ANY PAIN OR DISCOMFORT AT THIS TIME. PIV TO RIGHT HAND G22, FLUSHED WITH NS INTACT AND OPERATIONAL. PT KEPT COMFORTABLE. CALL LIGHT KEPT WITHIN REACH. PT'S BED IN LOWEST, LOCKED POSITION WITH SRX3. WILL CONTINUE PLAN OF CARE.
--- NOTE | 2019-10-22 07:38 | NUR ---
RN CLOSING NOTES PATIENT RESTING IN BED, EASILY AROUSABLE. A/OX3. NO SIGNS OF DISTRESS OR DISCOMFORT. BREATHING EVEN AND UNLABORED. ON 5LPM O2 VIA NC. IV ACCESS IN R HAND, PATENT AND INTACT, NO SIGNS OF REDNESS OR INFILTRATION. HAS SUPRAPUBIC CATH INTACT DRAINING CLEAR YELLOW FLUID. ALL NEEDS MET. NO SIGNIFICANT CHANGES THROUGH THE NIGHT. PATIENT REPOSITIONED Q2H AND PRN. BED IN OW LOCKED POSITION WITH SIDE RAILS X2. HOB ELEVATED. CALL LIGHT WITHIN REACH. ENDORSED TO AM SHIFT FOR TRISHA.
[2019-10-22] MEDS: HYDROGEL DRESSING 90 GM TUBE TP SCH (09:16)
[2019-10-22] MEDS: MUPIROCIN OINT 2% 22 GM TUBE SCH ×2 (09:16→21:59)
--- NOTE | 2019-10-22 12:02 | NUR ---
RN NOTES PT REFUSED FOR SUGAR CHECK. RN EXPLAINED RISKS AND BENEFITS, PT INSISTED TO REFUSED X3. WILL CONTINUE TO MONITOR.
--- NOTE | 2019-10-22 13:36 | NUR ---
RN NOTES PER HOSPITALIST/ED, PT NEEDS TO BE AFEBRILE X3DAYS BEFORE RE-SWABBING. EVAN/INFECTIOUS DSE NURSE MADE AWARE WELL. WILL CONTINUE TO MONITOR PT.
[2019-10-22 14:45] LABS: BASOPHILS # (AUTO) 0.1 /CMM (0.0-0.2); BASOPHILS % (AUTO) 0.8 % (0.0-2.0); EOSINOPHILS % (AUTO) 4.7 % (0.0-6.0); HEMATOCRIT 31 % (39-51); HEMOGLOBIN 10.3 g/dL (13.5-17.5); LYMPHOCYTES # (AUTO) 1.8 /CMM (0.8-4.8); MEAN CORPUSCULAR HGB CONC 34 g/dl (31.0-36.0); MEAN CORPUSCULAR VOLUME 87 fL (80-96); MONOCYTES # (AUTO) 0.4 /CMM (0.1-1.30); MONOCYTES % (AUTO) 3.6 % (2.0-12.0); NEUTROPHILS # (AUTO) 7.2 /CMM (1.8-8.9); NEUTROPHILS % (AUTO) 72.9 % (43.0-81.0); PLATELET COUNT (AUTO) 559 /CMM (150-450); RED BLOOD CELL COUNT(AUTO) 3.55 MIL/uL (4.5-6.0); WHITE BLOOD COUNT (AUTO) 9.9 K/uL (4.3-11.0)
[2019-10-22 15:10] LABS: CALCIUM, SERUM 7.8 mg/dL (8.5-10.1); MAGNESIUM 1.8 mg/dL (1.8-2.4); PHOSPHORUS 3.6 mg/dL (2.5-4.9); POTASSIUM 3.4 mmol/L (3.5-5.1)
[2019-10-22] MEDS ORDERED: POTASSIUM CHLORIDE 20 MEQ TAB.PRT.SR PO SCH (16:00)
[2019-10-22] MEDS: INSULIN REGULAR, HUMAN 100 UNIT/ML 3 ML VIAL SQ PRN (16:40)
--- NOTE | 2019-10-22 18:46 | NUR ---
STAFF COUNSEL CLOSING NOTES PT REMAINS IN BED, INTERMITTENTLY DOZING OFF, EASILY AROUSED, A/OX2-3. PT ON SUPPLEMENTARY OXYGEN AT 4L VIA NC, WITH NO ACUTE RESPIRATORY DISTRESS NOTED. ON TELEMONITORING NSR 77. PT DENIES ANY PAIN OR DISCOMFORT AT THIS TIME. PIV TO RIGHT HAND G22, FLUSHED WITH NS INTACT AND OPERATIONAL. SUPRAPUBIC CATH NOTED WITH 1100ML OUTPUT. PT KEPT COMFORTABLE. ALL NEEDS AND CARE ATTENDED AND PROVIDED. CALL LIGHT KEPT WITHIN REACH. PT'S BED IN LOWEST, LOCKED POSITION WITH SRX3. WILL ENDORSE TO INCOMING NIGHT NURSE FOR TRISHA.
--- NOTE | 2019-10-22 19:20 | NUR ---
RN OPENING NOTES RECEIVED PATIENT AWAKE IN BED. A/OX3. NO SIGNS OF DISTRESS OR DISCOMFORT. BREATHING EVEN AND UNLABORED. ON 4LPM O2 VIA NC. IV ACCESS IN R HAND, PATENT AND INTACT, NO SIGNS OF REDNESS OR INFILTRATION. HAS SUPRAPUBIC CATH INTACT DRAINING CLEAR YELLOW FLUID. BED IN lOW LOCKED POSITION WITH SIDE RAILS X2. HOB ELEVATED. CALL LIGHT WITHIN REACH. WILL CONTINUE TO MONITOR. Addendum: 10/22/19 at 2002 by PHOENIX LANG RN ON TELE MONITOR WITH SR 69 NOTED.
--- NOTE | 2019-10-22 22:00 | NUR ---
RN NOTES PATIENT REFUSED ACCU CHECK X3. RISK AND BENEFITS EXPLAINED. WILL CONTINUE TO MONITOR.
[2019-10-23 04:00] VITALS: BP 147/80
--- NOTE | 2019-10-23 06:30 | NUR ---
RN NOTES PATIENT REFUSED INSULIN COVERAGE FOR BS 162. RISK AND BENEFITS EXPLAINED. WILL CONTINUE TO MONITOR.
[2019-10-23] MEDS: BLOOD SUGAR DIAGNOSTIC 1 EACH STRIP IN SCH ×4 (06:40→22:15)
--- NOTE | 2019-10-23 07:13 | NUR ---
RN CLOSING NOTES PATIENT RESTING IN BED, EASILY AROUSABLE. A/OX3. NO SIGNS OF DISTRESS OR DISCOMFORT. BREATHING EVEN AND UNLABORED. ON 4LPM O2 VIA NC. PATIENT HAS NOT IV ACCESS AT THIS TIME. ATTEMPTED TO REINSERT MULTIPLE TIMES AND PATIENT REFUSED. SAYS HE WANTS TO DO IT LATER. HAS SUPRAPUBIC CATH INTACT DRAINING CLEAR YELLOW FLUID. ALL NEEDS MET. NO SIGNIFICANT CHANGES THROUGH THE NIGHT. PATIENT REPOSITIONED Q2H AND PRN. BED IN OW LOCKED POSITION WITH SIDE RAILS X2. HOB ELEVATED. CALL LIGHT WITHIN REACH. WILL ENDORSE TO AM SHIFT FOR TRISHA.
[2019-10-23 07:14] LABS: CALCIUM, SERUM 8.8 mg/dL (8.5-10.1); CREATININE 0.8 mg/dL (0.6-1.3); POTASSIUM 3.4 mmol/L (3.5-5.1)
--- NOTE | 2019-10-23 07:30 | NUR ---
CREMATORIUM OPERATOR NOTES PT IN BED, AWAKE, ALERT AND ORIENTED, NO COMPLAINT OF PAIN OR ANY DISCOMFORT, REFUSING IV REINSERTION AND VITAL SIGNS CHECK AT THIS TIME, CALL LIGHT WITHIN REACH, NEEDS ATTENDED.
[2019-10-23] MEDS: POTASSIUM CHLORIDE 20 MEQ TAB.PRT.SR PO SCH ×2 (10:30→10:53)
--- NOTE | 2019-10-23 10:30 | NUR ---
CNC MILL OPERATOR NOTES DR. BRIZUELA INFORMED OF PT'S REFUSALS FOR IV REINSERTION AND VITALS, PT GONZALO, PER , OK TO INSERT MIDLINE, ONLINE COMMUNITY MANAGER INFORMED.
[2019-10-23] MEDS: MUPIROCIN OINT 2% 22 GM TUBE SCH ×2 (10:54→22:15)
[2019-10-23] MEDS: HYDROGEL DRESSING 90 GM TUBE TP SCH (10:54)
[2019-10-23 12:00] VITALS: BP 114/89
[2019-10-23] MEDS: AMIKACIN 1,000 MG in IV D5W 100 ML IV SCH (12:20)
[2019-10-23] MEDS: PROSOURCE / PROSTAT (PYXIS) 30 ML UDC PO SCH ×2 (13:00→17:00)
[2019-10-23] MEDS: INSULIN REGULAR, HUMAN 100 UNIT/ML 3 ML VIAL SQ PRN ×2 (18:21→22:19)
--- NOTE | 2019-10-23 19:00 | NUR ---
BOILER OUT NOTES PT IN BED, AWAKE, ALERT AND ABLE TO MAKE NEEDS KNOWN, ASSISTED WITH MEALS, PM CARE PROVIDED, BS CHECKED, INSULIN ADMINISTERED PER SLIDING SCALE ORDERED, SUPRAPUBIC CATH IN PLACE AND PATENT, ALL NEEDS ATTENDED.
--- NOTE | 2019-10-23 19:06 | NUR ---
PAN PUSHER RECEIVED PATIENT Patient in bed, awake. Oxygen 4L NC, Sinus rhythm in the Tele monitor. JUAN Midline intact, supra pubic cath in place to gravity. Repositioned, agitated when turned, skin precaution maintained. Contact/droplet isolation.
[2019-10-23 20:41] VITALS: BP 123/86
[2019-10-23] MEDS ORDERED: MUPIROCIN OINT 2% 22 GM TUBE SCH (22:00)
[2019-10-23 23:49] VITALS: BP 93/62
[2019-10-24 03:45] VITALS: BP 152/76
[2019-10-24] MEDS: INSULIN REGULAR, HUMAN 100 UNIT/ML 3 ML VIAL SQ PRN (06:41)
[2019-10-24] MEDS: BLOOD SUGAR DIAGNOSTIC 1 EACH STRIP IN SCH ×4 (06:41→22:00)
--- NOTE | 2019-10-24 07:30 | NUR ---
SANITARY PLUMBER NOTES PT IN BED. AWAKE, ALERT AND ORIENTED, DENIES PAIN, NOT IN DISTRESS, CALL LIGHT WITHIN REACH, KEPT WARM AND COMFORTABLE IN BED.
--- NOTE | 2019-10-24 07:45 | NUR ---
HARD HAT DIVER: END OF SHIFT REPORT Patient in bed, A/O x2 forgetful, with episode of confusion. Sinus rhythm in the Tele monitor. Remains on supplemental Oxygen 4L NC. JUAN Midline intact, IV antibiotic as scheduled, afebrile overnight. Supra pubic cath intact, output good, no BM this shift. Dressing changed to wounds, turned and repositioned. Contact, droplet precaution. ID following. Refused AM lab, endorsed to ALEJANDRO Helm.
[2019-10-24] MEDS: PROSOURCE / PROSTAT (PYXIS) 30 ML UDC PO SCH ×3 (08:47→17:00)
[2019-10-24] MEDS: MUPIROCIN OINT 2% 22 GM TUBE SCH ×2 (08:47→20:22)
[2019-10-24] MEDS: HYDROGEL DRESSING 90 GM TUBE TP SCH (08:48)
[2019-10-24] MEDS: LOSARTAN POTASSIUM 50 MG TABLET PO SCH ×2 (09:30→21:00)
--- NOTE | 2019-10-24 10:58 | NUR ---
TELEPHOTO INSTALLER NOTES PT SEEN BY DR. GELACIO MD INFORMED OF PT'S REFUSALS OF MEDS, VITALS AND LAB DRAWS.
--- NOTE | 2019-10-24 12:00 | NUR ---
GLASS SCIENCE ENGINEER NOTES BS 191, REFUSED INSULIN ADMINISTRATION, RISKS AND BENEFITS DISCUSSED WITH PT, STILL REFUSED, O2 TITRATED TO 3LPM VIA N/C, O2 SAT OF 94-95%, NOT IN DISTRESS, ENCOURAGED INCREASED PO INTAKE.
[2019-10-24 15:39] LABS: CALCIUM, SERUM 9.2 mg/dL (8.5-10.1); CREATININE 0.8 mg/dL (0.6-1.3); POTASSIUM 3.4 mmol/L (3.5-5.1)
--- NOTE | 2019-10-24 18:07 | NUR ---
PIPE FITTER WELDING NOTES PT IN BED, AWAKE, ALERT AND VERBALLY RESPONSIVE, NO COMPLAINT, NOT IN DISTRESS, BS CHECKED 171, REFUSED INSULIN, RISKS AND BENEFITS DISCUSSED WITH PT, STILL REFUSED, PM CARE PROVIDED, SUPRAPUBIC CATH IN PLACE, DRAINING WELL, KEPT WARM AND COMFORTABLE, TURNED AND REPOSITIONED Q2 HOURS, ALL NEEDS ATTENDED.
--- NOTE | 2019-10-24 19:40 | NUR ---
LASER CUTTER NOTE: PATIENT RESTING IN BED, NO ACUTE DISTRESS NOTED. BREATHING EVEN AND UNLABORED, NO SOB NOTED. MIDLINE TO JUAN IN PLACE. SUPRAPUBIC CATH IN PLACE. NO S/S OF HYPER/HYPOGLYCEMIA NOTE. BED LOCKED AND IN LOWEST POSITION, CALL LIGHT IN REACH. WILL CONTINUE TO MONITOR.
[2019-10-24 20:20] VITALS: BP 135/78
[2019-10-24] MEDS: AMIKACIN 1,000 MG in IV D5W 100 ML IV SCH (20:22)
--- NOTE | 2019-10-24 22:30 | NUR ---
HELICOPTER MECHANIC NOTE: PATIENT REFUSED FOR BLOOD SUGAR CHECK. EXPLAINED RISK AND BENEFITS, BUT PATIENT CONTINUES TO REFUSE BLOOD SUGAR CHECK. NO S/S OF HYPER/HYPOGLYCEMIA NOTED. WILL CONTINUE TO MONITOR.
[2019-10-25] VITALS (7 sets, daily range): BP systolic 90–161; BP diastolic 40–79
--- NOTE | 2019-10-25 06:55 | NUR ---
TECHNICAL MANAGER NOTE: PATIENT RESTING IN BED, NO ACUTE DISTRESS NOTED. BREATHING EVEN AND UNLABORED, NO SOB NOTED. SUPRAPUBIC CATH IN PLACE. PATIENT BLOOD SUGAR LEVEL 176MG/DL, PATIENT REFUSES INSULIN PER SLIDING SCALE. EXPLAINED RISK AND BENEFITS, BUT PATIENT CONTINUES TO REFUSE INSULIN. NO S/S OF HYPER/HYPOGLYCEMIA NOTE. PATIENT MIDLINE ACCIDENTALLY GOT PULLED OUT. PATIENT HARD STICK, TO HAVE ANOTHER MIDLINE PLACE DURING DAYSHIFT. BED LOCKED AND IN LOWEST POSITION, CALL LIGHT IN REACH. WILL ENDORSE TO DAY NURSE TO CONTINUE WITH PLAN OF CARE.
[2019-10-25] MEDS: INSULIN REGULAR, HUMAN 100 UNIT/ML 3 ML VIAL SQ PRN (07:00)
[2019-10-25] MEDS: BLOOD SUGAR DIAGNOSTIC 1 EACH STRIP IN SCH ×4 (07:00→22:51)
--- NOTE | 2019-10-25 07:14 | NUR ---
RN NOTES RECEIVED PATIENT RESTING IN BED, NO ACUTE DISTRESS NOTED AT THIS TIME. SUPRAPUBIC CATH IN PLACE. NO IV ACCESS, PER VULCAN CREWMEMBER, MIDLINE WAS PULLET OUT. SAFETY MEASURES IN PLACE. BED LOCKED AND IN LOWEST POSITION, CALL LIGHT IN REACH. WILL CONTINUE TO MONITOR.
[2019-10-25] MEDS: LOSARTAN POTASSIUM 50 MG TABLET PO SCH ×2 (09:00→21:00)
[2019-10-25] MEDS: PROSOURCE / PROSTAT (PYXIS) 30 ML UDC PO SCH ×3 (09:02→16:24)
[2019-10-25] MEDS: MUPIROCIN OINT 2% 22 GM TUBE SCH (09:03)
[2019-10-25] MEDS: HYDROGEL DRESSING 90 GM TUBE TP SCH (09:04)
--- NOTE | 2019-10-25 12:57 | NUR ---
RN NOTES BS OF 191, REFUSED INSULIN, EXPLAINED RISKS AND BENEFITS BUT PATIENT STILL REFUSED. WILL CONTINUE TO MONITOR.
[2019-10-25 15:52] LABS: CALCIUM, SERUM 9.4 mg/dL (8.5-10.1); POTASSIUM 3.6 mmol/L (3.5-5.1)
[2019-10-25 15:56] LABS: BASOPHILS % (AUTO) 0.3 % (0.0-2.0); LYMPHOCYTES # (AUTO) 1.5 /CMM (0.8-4.8)
[2019-10-25 16:01] LABS: EOSINOPHILS % (AUTO) 1.2 % (0.0-6.0); HEMATOCRIT 36 % (39-51); HEMOGLOBIN 11.5 g/dL (13.5-17.5); MEAN CORPUSCULAR HGB CONC 32 g/dl (31.0-36.0); MEAN CORPUSCULAR VOLUME 90 fL (80-96); MONOCYTES # (AUTO) 0.3 /CMM (0.1-1.30); MONOCYTES % (AUTO) 2.5 % (2.0-12.0); NEUTROPHILS # (AUTO) 11.7 /CMM (1.8-8.9); PLATELET COUNT (AUTO) 632 /CMM (150-450); RED BLOOD CELL COUNT(AUTO) 3.99 MIL/uL (4.5-6.0); WHITE BLOOD COUNT (AUTO) 13.7 K/uL (4.3-11.0)
--- NOTE | 2019-10-25 16:15 | NUR ---
RN NOTES PATIENT NOTED WITH BP OF 90/40, MD MADE AWARE WITH ORDER OF 500ML OF NS BOLUS. WILL CONTINUE TO MONITOR.
[2019-10-25] MEDS ORDERED: NORMAL SALINE 10 ML DISP.SYRIN IV ONE (16:30)
[2019-10-25] MEDS ORDERED: IV NS 0.9% 500 ML IV ONE (16:30)
[2019-10-25 16:43] LABS: C-REACTIVE PROTEIN 27.1 mg/dL (0.0-0.9)
[2019-10-25 16:48] LABS: BAND % (MANUAL) 2 % (0.0-5.0); EOSINOPHILS % (MANUAL) 2 % (0-4); LYMPHOCYTES % (MANUAL) 13 % (16-48); MONOCYTES % (MANUAL) 6 % (0-11.0); NEUTROPHILS % (MANUAL) 76 (42-76); REACTIVE LYMPHOCYTES 1 % (0-0)
--- NOTE | 2019-10-25 18:35 | NUR ---
RN NOTES PATIENT RESTING IN BED, NO ACUTE DISTRESS NOTED. SUPRAPUBIC CATH IN PLACE. QUENTIN MIDLINE, PATENT AND INTACT. BP WENT UP TO 100/60 AFTER NORMAL SALINE 500ML BOLUS. REFUSE INSULIN COVERAGE, EXPLAINED RISKS AND BENEFITS BUT STILL REFUSED, SAFETY MEASURES IN PLACE. BED LOCKED AND IN LOWEST POSITION, CALL LIGHT IN REACH. WILL ENDORSE TO LEAD SUPPLY WORKER NURSE FOR TRISHA.
--- NOTE | 2019-10-25 19:35 | NUR ---
RN OPENING NOTES RECEIVED REPORT FROM CRISTIAN REILLY. FOUND Pt AWAKE, RESTING IN BED, NO S/S OF ACUTE DISTRESS OR SOB NOTED. PER REPORT, Pt IS A/OX2, WITH CONFUSION, BENGALI SPEAKING BUT ALSO UNDERSTANDS SOME CZECH. ON TELE MONITOR WITH TELE READING SR 75. SUPRAPUBIC CATHETER IN PLACE, DRAINING WELL. IV ACCESS ON QUENTIN MIDLINE. PER REPORT Pt IS QUADRIPLEGIC, BUT WITH SOME MOVEMENTS OF THE ARM, WITH SPASMS. NEEDS FEEDER FOR FOOD, BUT ABLE TO SWALLOW FINE. PER REPORT Pt HAS BEEN REFUSING INSULIN. SAFETY MEASURES IN PLACE. BED LOW, LOCKED, HOB ELEVATED, SIDE RAILS UP. BED ALARM ON. WILL CONTINUE TO MONITOR Pt's CONDITION AND SAFETY THROUGHOUT THE NIGHT.
--- NOTE | 2019-10-25 22:45 | NUR ---
RN NOTES Pt REFUSED INSULIN FOR TONIGHT. BG 230. NO SNACKS GIVEN. WILL REASSESS BG IN THE AM.
[2019-10-26] VITALS (9 sets, daily range): BP systolic 100–121; BP diastolic 41–98
--- NOTE | 2019-10-26 | NUR ---
RN NOTES Pt IS REFUSING TO BE TOUCHED OR REPOSITIONED. EXPLAINED TO Pt THAT WE WANTED TO REPOSITION HIM, Pt YELLED AND SAID NOT TO TOUCH HIM AND THAT HE IS FINE HOW HE IS.
[2019-10-26] MEDS: BLOOD SUGAR DIAGNOSTIC 1 EACH STRIP IN SCH ×4 (06:45→22:39)
--- NOTE | 2019-10-26 06:45 | NUR ---
RN NOTES BG 195. Pt REFUSED INSULIN COVERAGE AT THIS TIME.
--- NOTE | 2019-10-26 06:50 | NUR ---
RN CLOSING NOTES NO SIGNIFICANT CHANGES IN Pt's CONDITION. NO S/S OF ACUTE DISTRESS OR SOB NOTED DURING THE NIGHT. Pt IS RESTING COMFORTABLY IN BED. SAFETY MEASURES IN PLACE. BED LOW, LOCKED, HOB ELEVATED, SIDE RAILS UP. BED ALARM ON. TELE READING SR 80. WILL ENDORSE TO DAYSHIFT RN FOR Pt's TRISHA.
[2019-10-26 07:53] LABS: CALCIUM, SERUM 9.4 mg/dL (8.5-10.1); POTASSIUM 3.1 mmol/L (3.5-5.1)
--- NOTE | 2019-10-26 08:00 | NUR ---
RN OPENING NOTE Patient is resting in bed, A/O x2 with periods of confusion, appears anxious, RR 24, saturating 96% on 4L NC. QUENTIN midline s/l is clean and intact, flushed with saline. Patient is bedbound, will turn [id number]. Suprapubic catheter in place with clear yellow output. Bed is in lowest position, side rails x3 in upright position, call light is within reach, fall safety and aspiration precautions enforced. Will continue with plan of care. Addendum: 10/26/19 at 1253 by RICK FERMIN RN Tele monitor SR 90
[2019-10-26] MEDS: LOSARTAN POTASSIUM 50 MG TABLET PO SCH ×2 (09:00→21:00)
[2019-10-26] MEDS: PROSOURCE / PROSTAT (PYXIS) 30 ML UDC PO SCH ×3 (09:00→17:12)
[2019-10-26] MEDS: HYDROGEL DRESSING 90 GM TUBE TP SCH (09:01)
--- NOTE | 2019-10-26 09:28 | NUR ---
INFORMATION SENT:FACESHEET, PROGRESS NOTES 10/24, 24HRS REPORT,DC PLANNING,UR 10/24. [phone] BY DHARA
[2019-10-26] MEDS ORDERED: POTASSIUM CHLORIDE 20 MEQ TAB.PRT.SR PO SCH (09:30)
[2019-10-26] MEDS: ACETAMINOPHEN 325 MG TABLET PO PRN (10:30)
--- NOTE | 2019-10-26 11:38 | NUR ---
RN NOTE Patient refused 1200 vital signs after explaining to the patient the importance. Patient continues to refuse and yells to "leave me alone"
[2019-10-26] MEDS: INSULIN REGULAR, HUMAN 100 UNIT/ML 3 ML VIAL SQ PRN ×3 (12:18→22:43)
--- NOTE | 2019-10-26 18:31 | NUR ---
RN CLOSING NOTE Patient is resting in bed, A/O x2 with periods of confusion, appears anxious, RR 24, saturating 96% on 3L NC. Titrated down per MD order. Patient is able to tolerate. Tele monitor SR 72. QUENTIN midline s/l is clean and intact, flushed with saline. Patient is bedbound, will turn [id number]. Suprapubic catheter in place with clear yellow output - 250cc. Patient turned [id number], wound dressing changed. All patient needs met, all due medications given. Bed is in lowest position, side rails x3 in upright position, call light is within reach, fall safety and aspiration precautions enforced. Will endorse to warehouse shift supervisor.
--- NOTE | 2019-10-26 19:00 | NUR ---
TELE/RN OPENING NOTES: RECEIVED PT. AWAKE, RESTING IN BED. A/OX2-3, [place] SPEAKING WITH EPISODES OF CONFUSION. PT. UNDERSTANDS MINIMAL WELSH. NO S/S OF ACUTE DISTRESS, NO SOB NOTED. PT. IS CURRENTLY ON 3L OF OXYGEN SATURATING AT 96%. WILL TITRATE OXYGEN DOWN MD ORDERED AND SEE IF PT. TOLERATES WELL. ON TELE MONITOR WITH TELE READING SR 77 WITH PVC. SUPRAPUBIC CATHETER IS IN PLACE, DRAINING WELL. IV ACCESS ON QUENTIN MIDLINE #18G. SAFETY MEASURES IN PLACE. BED LOW, LOCKED, HOB ELEVATED, SIDE RAILS UP. BED ALARM ON. PROPER ISOLATION PRECAUTION FOR COVID-19 MAINTAINED. CALL LIGHT WITHIN REACH. WILL CONTINUE TO MONITOR Pt's CONDITION AND SAFETY THROUGHOUT THE NIGHT.
[2019-10-27] VITALS (7 sets, daily range): BP systolic 89–142; BP diastolic 44–75
--- NOTE | 2019-10-27 07:30 | NUR ---
RN OPENING NOTE Patient is resting in bed, A/O x2 with periods of confusion, appears anxious, RR 24, saturating 96% on 3L NC. Tele monitor SR 70s. QUENTIN midline s/l is clean and intact, flushed with saline. Patient is bedbound, will turn [id number]. Suprapubic catheter in place with clear yellow output. Bed is in lowest position, side rails x3 in upright position, call light is within reach, fall safety and aspiration precautions enforced. Will continue with plan of care.
--- NOTE | 2019-10-27 07:30 | NUR ---
TELE/RN CLOSING NOTES: PT. REMAINS A/OX2-3, NO S/S OF ACUTE DISTRESS, NO SOB NOTED. PT. IS CURRENTLY ON 3L OF OXYGEN SATURATING AT 94%. UNABLE TO TITRATE OXYGEN DOWN BECAUSE O2SAT DROPS TO 90%. ON TELE MONITOR WITH TELE READING SR 70S WITH PVC. SUPRAPUBIC CATHETER IS IN PLACE, DRAINED WELL. IV ACCESS ON QUENTIN MIDLINE #18G. SAFETY MEASURES KEPT IN PLACE. BED LOW, LOCKED, HOB ELEVATED, SIDE RAILS UP. BED ALARM ON. PROPER ISOLATION PRECAUTION FOR COVID-19 MAINTAINED. CALL LIGHT WITHIN REACH. WILL ENDORSE TO DAY SHIFT FOR TRISHA.
[2019-10-27] MEDS: BLOOD SUGAR DIAGNOSTIC 1 EACH STRIP IN SCH ×4 (07:41→21:56)
--- NOTE | 2019-10-27 07:42 | NUR ---
TELE/RN NOTES: BS 194. ENDORSED TO DAY SHIFT TO GIVE INSULIN.
[2019-10-27] MEDS: INSULIN REGULAR, HUMAN 100 UNIT/ML 3 ML VIAL SQ PRN ×4 (08:41→22:00)
--- NOTE | 2019-10-27 08:41 | NUR ---
RN NOTE Patient refused insulin at this time, stating he is not hungry. Patient appears diaphoretic, BP 89/45. Will re-check BS and continue to monitor.
[2019-10-27] MEDS: PROSOURCE / PROSTAT (PYXIS) 30 ML UDC PO SCH ×3 (08:42→17:00)
[2019-10-27] MEDS: LOSARTAN POTASSIUM 50 MG TABLET PO SCH (08:42)
--- NOTE | 2019-10-27 09:41 | NUR ---
RN NOTE Updated MD on patient condition, received orders for 500 NS IV bolus and ABG. Will carry out orders.
[2019-10-27] MEDS: HYDROGEL DRESSING 90 GM TUBE TP SCH (09:55)
[2019-10-27 09:58] LABS: BASOPHILS # (AUTO) 0.2 /CMM (0.0-0.2); BASOPHILS % (AUTO) 1.3 % (0.0-2.0); EOSINOPHILS % (AUTO) 2.6 % (0.0-6.0); HEMATOCRIT 34 % (39-51); HEMOGLOBIN 10.8 g/dL (13.5-17.5); LYMPHOCYTES # (AUTO) 1.4 /CMM (0.8-4.8); LYMPHOCYTES % (AUTO) 11.4 % (20.0-44.0); MEAN CORPUSCULAR HGB CONC 32 g/dl (31.0-36.0); MEAN CORPUSCULAR VOLUME 90 fL (80-96); MONOCYTES # (AUTO) 0.4 /CMM (0.1-1.30); MONOCYTES % (AUTO) 3.5 % (2.0-12.0); NEUTROPHILS # (AUTO) 9.8 /CMM (1.8-8.9); NEUTROPHILS % (AUTO) 81.2 % (43.0-81.0); PLATELET COUNT (AUTO) 455 /CMM (150-450); RED BLOOD CELL COUNT(AUTO) 3.81 MIL/uL (4.5-6.0); WHITE BLOOD COUNT (AUTO) 12.1 K/uL (4.3-11.0)
[2019-10-27] MEDS ORDERED: IV NS 0.9% 500 ML IV ONE (10:00)
[2019-10-27 10:33] LABS: CALCIUM, SERUM 9.2 mg/dL (8.5-10.1); CREATININE 1.2 mg/dL (0.6-1.3); POTASSIUM 3.7 mmol/L (3.5-5.1)
--- NOTE | 2019-10-27 11:30 | NUR ---
RN NOTE Patient refused 1200 vital signs after explaining to the patient the importance. Patient continues to refuse and yells to "give me a break!"
--- NOTE | 2019-10-27 11:40 | NUR ---
RT NOTE Pt refused ABG at this time. Place pt back on nasal cannula O2.
[2019-10-27] MEDS: HYDROCODONE/APAP 5/325MG 1 EACH TABLET PO PRN ×2 (13:34→22:29)
--- NOTE | 2019-10-27 16:31 | NUR ---
RN OPENING NOTE Patient is resting in bed, A/O x2 with periods of confusion, appears anxious, RR 24, saturating 96% on 3L NC. Tele monitor SR 70s. QUENTIN midline s/l is clean and intact, flushed with saline. Patient is bedbound, will turn [id number]. Suprapubic catheter in place with clear yellow output. Bed is in lowest position, side rails x3 in upright position, call light is within reach, fall safety and aspiration precautions enforced. Will continue with plan of care.
--- NOTE | 2019-10-27 18:36 | NUR ---
RN CLOSING NOTE Patient is resting in bed, A/O x2 with periods of confusion, RR 20, saturating 96% on 3L NC. Tele monitor SR 70s. QUENTIN midline s/l is clean and intact, flushed with saline. S/P 500ml IV bolus due to hypotension, BP improved. Patient is bedbound, turned [id number] and dressing changed. Suprapubic catheter in place with clear yellow output 300cc. All patient needs met, all due medications given. Bed is in lowest position, side rails x3 in upright position, call light is within reach, fall safety and aspiration precautions enforced. Will endorse to mold shifter.
--- NOTE | 2019-10-27 19:00 | NUR ---
TELE/RN OPENING NOTES: RECEIVED PT. AWAKE, RESTING IN BED. A/OX2, MACEDONIAN SPEAKING WITH EPISODES OF CONFUSION. PT. UNDERSTANDS MINIMAL MALAY. NO S/S OF ACUTE DISTRESS, NO SOB NOTED. PT. IS CURRENTLY ON 3L OF OXYGEN SATURATING AT 93%. WILL TITRATE OXYGEN DOWN MD ORDERED AND PT. TOLERATES. ON TELE MONITOR WITH TELE READING SR 70S WITH PVC. SUPRAPUBIC CATHETER IS IN PLACE, DRAINING WELL. IV ACCESS ON QUENTIN MIDLINE #18G. SAFETY MEASURES IN PLACE. BED LOW, LOCKED, HOB ELEVATED, SIDE RAILS UP. BED ALARM ON. PROPER ISOLATION PRECAUTION FOR COVID-19 MAINTAINED. CALL LIGHT WITHIN REACH. WILL CONTINUE TO MONITOR Pt's CONDITION AND SAFETY THROUGHOUT THE NIGHT.
--- NOTE | 2019-10-27 22:10 | NUR ---
TELE/RN NOTES: PT. BS CHECK FOR HS IS 224. ADMINISTERED 4 UNITS OF REGULAR INSULIN. GIVEN ORANGE JUICE AND APPLE SAUCE TO PREVENT BLOOD SUGAR FROM DROPPING.
--- NOTE | 2019-10-27 22:38 | NUR ---
TELE/RN NOTES: PT. COMPLAINING OF MODERATE PAIN. REQUESTING FOR NORCO. BP: 105/58 HR: 82. O2SAT: 94% ON 3L OF OXYGEN VIA NC. TEMP: 98.5. ADMINISTERED 5MG NORCO PO. CRUSHED WITH APPLE SAUCE. TOLERATED WELL. WILL CONTINUE TO MONITOR.
[2019-10-28] VITALS (17 sets, daily range): BP systolic 56–168; BP diastolic 22–115
--- NOTE | 2019-10-28 00:04 | NUR ---
TELE/RN NOTES: PT. REQUESTING SUPPOSITORY FOR CONSTIPATION. PULLED OUT DULCOLAX 10MG FROM [facility]. READY TO GIVE AT BEDISDE AND PT. STARTED HAVING BOWEL MOVEMENT. DULCOLAX NOT GIVEN AND WASTED. PT. KEPT CLEAN AND DRY. WILL CONTINUE TO MONITOR.
--- NOTE | 2019-10-28 06:18 | NUR ---
TELE/RN CLOSING NOTES: Patient is resting in bed, remains A/O x2 with periods of confusion, RR 20, saturating 93-96% on 3L NC. Unable to titrate oxygen to 2L because o2 sat drops to 89-90%. Tele monitor SR 70s. QUENTIN midline s/l is clean and intact, flushed with saline. Patient is bedbound, turned [id number] and dressing changed. Suprapubic catheter in place with clear yellow output 300cc. Pain managed throughout the night. All patient needs met, all due medications given. Bed is in lowest position, side rails x3 in upright position, call light is within reach, fall safety and aspiration precautions enforced. Will endorse to day shift for TRISHA.
[2019-10-28] MEDS: BLOOD SUGAR DIAGNOSTIC 1 EACH STRIP IN SCH ×4 (06:35→23:04)
[2019-10-28] MEDS: INSULIN REGULAR, HUMAN 100 UNIT/ML 3 ML VIAL SQ PRN ×3 (06:40→23:13)
--- NOTE | 2019-10-28 07:08 | NUR ---
TELE/RN NOTES: BS CHECK FOR AC IS 234. ADMINISTERED 4U OF REG. INSULIN. GIVEN APPLE JUICE.
--- NOTE | 2019-10-28 07:27 | NUR ---
TELE/RN NOTES: PT. REFUSED LAB DRAW. LAB WILL COME BACK IN AN HOUR. DAY SHIFT NURSE AWARE.
--- NOTE | 2019-10-28 07:53 | NUR ---
RACK ROOM WORKER OPENING NOTES RECEIVED PATIENT IN BED, AWAKE, A/O X2. PATIENT IS ON OXYGEN THERAPY AT 3 LPM VIA NASAL CANULA. PATIENT DENIES PAIN AT THIS TIME. EXTERNAL TELE MONITOR WITH A READING OF 73 SR. QUENTIN MIDLINE PRESENT AND INTACT. SAFETY PRECAUTIONS IN PLACE; BED IN LOW POSITION AND LOCKED, RAILS UP X2, CALL LIGHT WITHIN REACH. WILL CONTINUE TO MONITOR PATIENT.
[2019-10-28] MEDS: PROSOURCE / PROSTAT (PYXIS) 30 ML UDC PO SCH ×3 (08:24→17:13)
[2019-10-28] MEDS: HYDROGEL DRESSING 90 GM TUBE TP SCH (08:24)
--- NOTE | 2019-10-28 09:46 | NUR ---
RIPENING ROOM ATTENDANT NOTES PATIENT STARTED TO FEEL SOB; SATURATING AT 90, BP IS LOW AT 82/52. CALLED [facility] AND LEFT A MESSAGE FOR MD. WAITING FOR HIS REPLY. DR KURTZ STOPPED BY ASKING REGARDING THE PATIENT. INSTRUCTED TO GIVE 250 CC NS OVER 1 HR IF BP DOES NOT GO UP ABOVE 90 WITHIN AN HOUR. WILL MONITOR PATIENT.
--- NOTE | 2019-10-28 10:16 | NUR ---
RIM ROLLER OPERATOR NOTES BP WENT UP TO 160. RESP: 38 HR 78 O2 [address] WEBB STOPPED BY AND REQUESTED A STAT X-RAY. WILL CONTINUE TO MONITOR PATIENT.
--- NOTE | 2019-10-28 11:15 | NUR ---
PROFESSOR OF PSYCHIATRY NOTES PATIENT CONDITION GETTING WORST. PATIENT STARTED TO DESATURATE. ON NON-REBREATHER NOW 100% SATURATING AT 92%. RR: 40 WITH THE USE OF ACCESSORY MUSCLES. MD NOTIFIED. ABG STAT ORDERED. RT IS IN THE ROOM WITH THE PATIENT.
--- NOTE | 2019-10-28 12:06 | NUR ---
MINE SUPERINTENDENTFUGITIVE INVESTIGATOR NOTES DUE TO WORSENING CONDITION PATIENT TRANSFERRED TO ICU. PATIENT TRANSFERRED WITH RT AND ON TELE MONITOR. REPORT GIVEN AT ICU BED SITE.
[2019-10-28 12:07] LABS: ABG BASE EXCESS -4.5 mmol/L; ABG OXYGEN SATURATION 96.8 % (92.0-98.5); ABG PCO2 34.2 mmHg (35.0-45.0); ABG PH 7.383 (7.350-7.450); AaDO2 515.7 mmHg; MetHb 0.3 % (0.0-1.5); O2Hb 96.5 % (94.0-97.0); SITE, ABG Right Radial; VENT MODE, BG NRB MASK 90%
--- NOTE | 2019-10-28 12:30 | NUR ---
INTENSIVE CARE MEDICINE SPECIALIST NOTES FAMILY (SISTER) NOTIFIED ABOUT PT TRANSFER TO ICU.
[2019-10-28 13:17] LABS: BILIRUBIN,DIRECT 0.1 mg/dL (0.0-0.2); BILIRUBIN,TOTAL 0.2 mg/dL (0.2-1.0); TOTAL PROTEIN, SERUM 6.8 g/dL (6.4-8.2)
[2019-10-28] MEDS ORDERED: NOREPINEPHRINE 8 MG in IV NS 0.9% 242 ML IV PRN (13:30)
[2019-10-28] MEDS ORDERED: IV NS 0.9% 1,000 ML IV PRN (13:30)
[2019-10-28] MEDS ORDERED: ACETAMINOPHEN 325 MG TABLET PO ONE (13:30)
[2019-10-28] MEDS ORDERED: diphenhydrAMINE HCL 50 MG/ML VIAL IV ONE (13:30)
[2019-10-28] MEDS ORDERED: TOCILIZUMAB 400 MG in IV NS 0.9% 80 ML IV ONE (14:00)
[2019-10-28] MEDS: PROPOFOL 100 ML IV PRN ×2 (14:44→20:16)
[2019-10-28] MEDS: LEVOFLOXACIN 750 MG /D5W 150ML 750 MG in PREMIX 1 EA IV SCH (15:05)
[2019-10-28] MEDS: methylPREDNISolone SOD SUCC 40 MG/ML VIAL IV SCH (15:05)
[2019-10-28] MEDS: ENOXAPARIN SODIUM 40 MG/0.4 ML DISP.SYRIN SQ SCH (15:06)
[2019-10-28] MEDS ORDERED: ETOMIDATE 2 MG/ML VIAL ONE (15:15)
--- NOTE | 2019-10-28 18:00 | NUR ---
TERRY CLOTH CUTTER HAND - ORDER NEW BARRERA CALLED PHARMACY
[2019-10-28] MEDS ORDERED: NOREPINEPHRINE 32 MG in IV NS 0.9% 218 ML IV PRN (18:30)
--- NOTE | 2019-10-28 19:00 | NUR ---
LIABILITY CLAIMS ADJUSTER CALLED PHARMACY FOR UPDATES ON MEDICATION
--- NOTE | 2019-10-28 19:15 | NUR ---
REMOTELY OPERATED VEHICLE CALLED PHARMACY FOR UPDATES ON MEDICATION
--- NOTE | 2019-10-28 19:30 | NUR ---
SECURITY SUPERVISOR INITIAL SHIFT NOTES RECEIVED PATIENT IN BED, SEDATED ON DIPRIVAN DRIP, ORALLY INTUBATED ON MECHANICAL VENT AT PRESCRIBED SETTINGS TOLERATING WELL. PATIENT ON LEVOPHED DRIP, OFF AT THIS TIME DUE TO BAG BEING EMPTY, PHARMACY BRINING UP NEW BAG OF PRESSOR, WILL RESTART WHEN DRUG AVAILABLE. QUENTIN MIDLINE PATENT AND INTACT, ALSO ON DIPRIVAN DRIP @ 45MCG/KG/MIN. SUPRAPUBIC CATHETER DRAINING TO BAG VIA GRAVITY. ISOLATION PRECAUTIONS OBSERVED, WILL MONITOR CLOSELY
[2019-10-28] MEDS: NOREPINEPHRINE 32 MG in IV NS 0.9% 218 ML IV PRN (19:47)
[2019-10-28 20:03] LABS: ABG BASE EXCESS -7.8 mmol/L; ABG PCO2 45.3 mmHg (35.0-45.0); ABG PH 7.245 (7.350-7.450); ABG PO2 192.7 mmHg (75.0-100.0); COHb 0.3 % (0.5-1.5); MetHb 0.1 % (0.0-1.5); O2Hb 98.6 % (94.0-97.0); PEEP,BG 12 cm H2O; SITE, ABG Left Brachial; VT, ABG 550 mL
--- NOTE | 2019-10-28 23:34 | NUR ---
HEAD FILTER PRESS TENDER NOTES BLOOD SUGAR 406, RECHECK ON ANOTHER EXTREMITY 404. 10 UNITS INSULIN ADMINISTERED PER SLIDING SCALE. DR REN NOTIFIED REGARDING ELEVATED BLOOD SUGAR. PER DR REN, STEROIDS MOST LIKELY INCREASING BLOOD SUGAR LEVELS. WITH NEW ORDER TO CHANGE FROM SCHEDULE OF ACHS TO Q6H AGGRESSIVE SLIDING SCALE. ORDERS NOTED, WILL CARRY OUT
[2019-10-29] VITALS (70 sets, daily range): BP systolic 72–154; BP diastolic 32–101
[2019-10-29] MEDS ORDERED: DEXTROSE 50%-WATER 50 ML DISP.SYRIN IV PRN
--- NOTE | 2019-10-29 | NUR ---
AUTOMOTIVE BRAKE TECHNICIAN NOTES PATIENT RESTING IN BED APPEARS COMFORTABLE, TOLERATING VENT SETTINGS WELL, WILL COTNINUE TO CLOSELY MONITOR
[2019-10-29] MEDS: PROPOFOL 100 ML IV PRN ×5 (02:14→20:31)
--- NOTE | 2019-10-29 04:00 | NUR ---
ELECTRONIC PAGE MAKEUP SYSTEM OPERATOR NOTES BED BATH RENDERED, TOLERATED WELL. WILL CONTINUE TO MONITOR
[2019-10-29 05:13] LABS: BASOPHILS % (AUTO) 0.2 % (0.0-2.0); HEMATOCRIT 34 % (39-51); HEMOGLOBIN 10.9 g/dL (13.5-17.5); LYMPHOCYTES # (AUTO) 1.8 /CMM (0.8-4.8); LYMPHOCYTES % (AUTO) 11.2 % (20.0-44.0); MEAN CORPUSCULAR HGB CONC 32 g/dl (31.0-36.0); MEAN CORPUSCULAR VOLUME 89 fL (80-96); MONOCYTES # (AUTO) 0.4 /CMM (0.1-1.30); MONOCYTES % (AUTO) 2.8 % (2.0-12.0); NEUTROPHILS # (AUTO) 13.5 /CMM (1.8-8.9); NEUTROPHILS % (AUTO) 85.8 % (43.0-81.0); PLATELET COUNT (AUTO) 250 /CMM (150-450); RED BLOOD CELL COUNT(AUTO) 3.79 MIL/uL (4.5-6.0); WHITE BLOOD COUNT (AUTO) 15.8 K/uL (4.3-11.0)
[2019-10-29 05:44] LABS: ALBUMIN 2.1 g/dL (3.4-5.0); BILIRUBIN,TOTAL 0.3 mg/dL (0.2-1.0); CALCIUM, SERUM 9.1 mg/dL (8.5-10.1); CREATININE 1.1 mg/dL (0.6-1.3); MAGNESIUM 1.7 mg/dL (1.8-2.4); PHOSPHORUS 3.4 mg/dL (2.5-4.9); POTASSIUM 4.6 mmol/L (3.5-5.1); TOTAL PROTEIN, SERUM 7.4 g/dL (6.4-8.2)
[2019-10-29] MEDS: BLOOD SUGAR DIAGNOSTIC 1 EACH STRIP IN SCH ×4 (05:55→23:46)
[2019-10-29] MEDS: INSULIN REGULAR, HUMAN 100 UNIT/ML 3 ML VIAL SQ PRN ×4 (05:58→23:49)
--- NOTE | 2019-10-29 07:00 | NUR ---
PACKAGING SPECIALIST CLOSING NOTES PATIENT RESTING IN BED, NO ACUTE DISTRESS AT THIS TIME, LEVOPHED DRIP TITRATED TO 0.18MCG/KG/MIN, PROPOFOL DRIP REMAINS AT 40. WILL ENDORSE THE PATIENT TO THE DAY SHIFT NURSE FOR CONTINUITY OF CARE
--- NOTE | 2019-10-29 07:15 | NUR ---
RN INITIAL NOTES RECEIVED PT INTUBATED, ON VENT. NO RESPIRATORY DISTRESS NOTED. NO SOB NOTED. HOB ELEVATED. NGT CLAMPED. QUENTIN MIDLINE IN PLACE. PT SEDATED, ON DIPRIVAN AT 40MCG/KG/MIN. WILL TITRATE ACCORDINGLY. LEVOPHED AT 0.18MCG/KG/MIN. FC IN PLACE. BLE ELEVATED. REPOSITIONING WHEN ABLE. WILL CONTINUE TO MONITOR
[2019-10-29 09:00] LABS: ABG BASE EXCESS -3.8 mmol/L; ABG PCO2 31.4 mmHg (35.0-45.0); ABG PH 7.417 (7.350-7.450); ABG PO2 76.2 mmHg (75.0-100.0); COHb 0.1 % (0.5-1.5); MetHb 0.1 % (0.0-1.5); O2Hb 94.8 % (94.0-97.0); PEEP,BG 12 cm H2O; SITE, ABG Right Radial; VT, ABG 600 mL
[2019-10-29] MEDS: methylPREDNISolone SOD SUCC 40 MG/ML VIAL IV SCH (09:21)
[2019-10-29] MEDS: PROSOURCE / PROSTAT (PYXIS) 30 ML UDC PO SCH ×3 (09:22→18:58)
[2019-10-29] MEDS: HYDROGEL DRESSING 90 GM TUBE TP SCH (09:22)
[2019-10-29] MEDS: ENOXAPARIN SODIUM 40 MG/0.4 ML DISP.SYRIN SQ SCH (09:23)
--- NOTE | 2019-10-29 09:30 | NUR ---
RN NOTES 899 SEEN AND EXAMINED BY DR MONTES DE OCA. AWARE OF LAB AND CXR RESULT. PT ON DIPRIVAN AT 40MCG/KG/MIN AND LEVOPHED, TITRATED ACCORDINGLY. WILL CLOSELY MONITOR 929 SEEN AND EXAMINED BY DR TRUJILLO. AWARE OF ABG RESULT. NO WEANING TRIALS AT THIS TIME. WILL CLOSELY MONITOR
[2019-10-29] MEDS: Magnesium 1GM/D5W 100ML PREMIX 100 ML IV SCH ×2 (10:51→12:00)
[2019-10-29] MEDS: LEVOFLOXACIN 750 MG /D5W 150ML 750 MG in PREMIX 1 EA IV SCH (13:26)
--- NOTE | 2019-10-29 15:44 | NUR ---
RT NOTE: PATIENT RECEIVED ORALLY INTUBATED WITH 7.5 ETT SECURED AT 25 CM MID LIP LINE ON MECHANICAL VENT. ALARMS VERIFIED AND AUDIBLE. VENT PLUGGED INTO RED OUTLET. AMBU BAG AT [facility].
--- NOTE | 2019-10-29 19:00 | NUR ---
RN CLOSING NOTES NO SIGNIFICANT CHANGE NOTED. PT REMAINS INTUBATED, ON VENT. STILL ON DIPRIVAN AND LEVOPHED. TX PROVIDED ORDERED. KEPT CLEAN AND DRY. REPOSITIONING WHEN ABLE. WILL ENDORSE FOR CONTINUITY OF CARE
--- NOTE | 2019-10-29 19:15 | NUR ---
PIPE FINISHER OPENING NOTES RECEIVED PT INTUBATED, ON VENT SETTING ORDERED TOLERATED WELL. NO RESPIRATORY DISTRESS NOTED. NO SOB NOTED. HOB ELEVATED. NGT CLAMPED. QUENTIN MIDLINE IN PLACE. PT SEDATED, ON DIPRIVAN AT 40MCG/KG/MIN. WILL TITRATE ACCORDINGLY. LEVOPHED AT 0.1MCG/KG/MIN. SUPRAPUBIC CATH IN PLACE WITH YELLOW URINE FLOWING BY GRAVITY. ON DROPLET ISOLATION FOR COVID (+). SAFETY MEASURE MAINTAINED BED ON LOWEST POSITION AND LOCKED.ON BILATERAL WRIST RESTRAINTS CIRCULATION CHECKED, WILL CONTINUE TO MONITOR
[2019-10-30] VITALS (66 sets, daily range): BP systolic 73–149; BP diastolic 37–100
[2019-10-30] MEDS: NOREPINEPHRINE 32 MG in IV NS 0.9% 218 ML IV PRN ×2 (00:01→11:40)
[2019-10-30] MEDS: PROPOFOL 100 ML IV PRN ×3 (02:00→11:40)
[2019-10-30 04:44] LABS: BASOPHILS # (AUTO) 0.1 /CMM (0.0-0.2); BASOPHILS % (AUTO) 0.4 % (0.0-2.0); EOSINOPHILS % (AUTO) 0.3 % (0.0-6.0); HEMATOCRIT 35 % (39-51); HEMOGLOBIN 11.3 g/dL (13.5-17.5); LYMPHOCYTES # (AUTO) 1.9 /CMM (0.8-4.8); LYMPHOCYTES % (AUTO) 13.3 % (20.0-44.0); MEAN CORPUSCULAR HGB CONC 33 g/dl (31.0-36.0); MEAN CORPUSCULAR VOLUME 88 fL (80-96); MONOCYTES # (AUTO) 0.9 /CMM (0.1-1.30); MONOCYTES % (AUTO) 5.9 % (2.0-12.0); NEUTROPHILS # (AUTO) 11.7 /CMM (1.8-8.9); NEUTROPHILS % (AUTO) 80.1 % (43.0-81.0); PLATELET COUNT (AUTO) 259 /CMM (150-450); RED BLOOD CELL COUNT(AUTO) 3.95 MIL/uL (4.5-6.0); WHITE BLOOD COUNT (AUTO) 14.6 K/uL (4.3-11.0)
[2019-10-30 04:52] LABS: CALCIUM, SERUM 9.2 mg/dL (8.5-10.1); CREATININE 1.2 mg/dL (0.6-1.3); POTASSIUM 4.3 mmol/L (3.5-5.1)
[2019-10-30] MEDS: BLOOD SUGAR DIAGNOSTIC 1 EACH STRIP IN SCH ×2 (05:33→12:12)
[2019-10-30] MEDS: INSULIN REGULAR, HUMAN 100 UNIT/ML 3 ML VIAL SQ PRN ×2 (05:34→12:13)
--- NOTE | 2019-10-30 05:57 | NUR ---
RT NOTES PT ORALLY INTUBATED WITH 7.5 ETT PROPERLY SECURED AT 25 CM LIP DILLON. VENT ALARMS ON AND WELL AUDIBLE AND PLUGGED INTO RED OUTLET. NO SOB OR DISTRESS NOTED. SX PRN LARGE THICK PALE YELLOW SECRETIONS. NO ADVERSE EFFECTS/ CHANGES IN PT STATUS NOTED ALL SHIFT.
--- NOTE | 2019-10-30 06:53 | NUR ---
ASSISTANT CONSTRUCTION SUPERINTENDENT CLOSING NOTES PT ON BED WITH ETT/VENT SETTING ORDERED TOLERATED WELL SPO2@ 98%, SEDATED WITH PROPOFOL @ 40MCG/KG/MIN VIA QUENTIN MIDLINE, ALSO ON LEVOPHED @ 0.2MCG/KG/MIN INFUSING WELL, OGT ON PLACE AND CLAMPED, WOUND TREATMENT RENDERED ORDER, STILL ON DROPLET ISOLATION PRECAUTION DUE TO COVID (+) CONTACT PRECAUTION FOR MRSA NARES, SAFETY MEASURE MAINTAINED BED AT LOWEST POSITION AND LOCKED, SIDE RAILS UP, BILATERAL WRIST RESTRAINTS MAINTAINED, ALL NEEDS ATTENDED WILL ENDORSED TO AM SHIFT NURSE
--- NOTE | 2019-10-30 07:15 | NUR ---
RN INITIAL NOTES RECEIVED PT INTUBATED, ON VENT. NO RESPIRATORY DISTRESS NOTED. NO SOB NOTED. HOB ELEVATED. NGT CLAMPED. QUENTIN MIDLINE IN PLACE. PT SEDATED, ON DIPRIVAN AT 40MCG/KG/MIN. WILL TITRATE ACCORDINGLY. LEVOPHED AT 0.2MCG/KG/MIN. FC IN PLACE. BLE ELEVATED. REPOSITIONING WHEN ABLE DUE TO ISOLATION. WILL CONTINUE TO MONITOR
[2019-10-30 08:50] LABS: ABG BASE EXCESS -6.4 mmol/L; ABG OXYGEN SATURATION 97.8 % (92.0-98.5); ABG PCO2 25.7 mmHg (35.0-45.0); ABG PH 7.425 (7.350-7.450); ABG PO2 101.4 mmHg (75.0-100.0); AaDO2 262.2 mmHg; O2Hb 97.8 % (94.0-97.0); PEEP,BG 12 cm H2O; SITE, ABG Right Radial; VENT MODE, BG AC 55%; VT, ABG 600 mL
[2019-10-30] MEDS: methylPREDNISolone SOD SUCC 40 MG/ML VIAL IV SCH (09:02)
[2019-10-30] MEDS: ENOXAPARIN SODIUM 40 MG/0.4 ML DISP.SYRIN SQ SCH (09:03)
[2019-10-30] MEDS: PROSOURCE / PROSTAT (PYXIS) 30 ML UDC PO SCH ×2 (09:04→12:12)
[2019-10-30] MEDS: HYDROGEL DRESSING 90 GM TUBE TP SCH (09:04)
--- NOTE | 2019-10-30 10:30 | NUR ---
RN NOTES 829 SEEN AND EXAMINED BY DR TRUJILLO. AWARE OF LAB VALUES ANF CXR RESULT. PT REMAINS ON LEVO, PARAMETER CHANGED. PT ON DIPRIVAN. KEPT SEDATED. WILL CLOSELY MONITOR 899 SEEN AND EXAMINED BY DR TRUJILLO. PT REMAINS INTUBATED, ON VENT. FI02 55%, PEEP +12. PT ON DIPRIVAN AT 40MCG/KG/MIN. WILL DO SEDATION VACATION AFTER ABG PER DR TRUJILLO. 1010 DR TRUJILLO AWARE OF ABG RESULT, VENT SETTINGS ADJUSTED. NO RESPIRATORY DISTRESS NOTED. KEPT HOB ELEVATED. PT ON SEDATION VACATION. WILL CLOSELY MONITOR
[2019-10-30] MEDS: LEVOFLOXACIN 750 MG /D5W 150ML 750 MG in PREMIX 1 EA IV SCH (12:12)
[2019-10-30] MEDS ORDERED: NOREPINEPHRINE 32 MG in IV NS 0.9% 218 ML IV PRN (13:00)
--- NOTE | 2019-10-30 18:00 | NUR ---
RN NOTES 1702 PT NOTED BRADYCARDIC, 30S. PEA ON MONITOR. MADISYN MENDEZ CALLED. PLEASE SEE CODE BLUE RECORD 1724 PT REMAINS PULSELESS. NO PULSE NOTED ON PALPATION. BP UNAPPRECIATED. CODE ENDED AND PRONOUNCED BY DR MANDUJANO. 174 ALEJANDRO VANN CALLED [facility]. SPOKE WITH NEERAJ. CASE # [id number] ALEJANDRO VANN CALLED [facility] CAMPUZANO (NEPHEW) AND NOTIFIED OF THE PT'S DEMISE. WILL SEND TO BODY TO [facility]
[2019-10-30] MEDS ORDERED: EPINEPHRINE (1:10,000) SYRINGE 1 MG/10 ML DISP.SYRIN IVP ONE (18:40)
[2019-10-30] MEDS ORDERED: SODIUM BICARBONATE SYR 50 MEQ/50 ML DISP.SYRIN IV ONE (18:40)
[2019-10-30] MEDS ORDERED: CALCIUM CHLORIDE 1,000 MG/10 ML DISP.SYRIN IV ONE (18:40)
== END 2019-10-30 17:24 | disposition expired | DRG 720 ==
LOC: ER 17:24 → TELE2 20:21 → ICU 10-28 12:22
PROVIDERS: ADMIT Nurse Practitioner Acute Care; ATTEND Family Medicine
PROC: 0JB70ZZ Excision of Back Subcutaneous Tissue and Fascia, Open Approach (ICD-10-PCS; principal; 2019-10-18)
PROC: 05HY33Z Insertion of Infusion Device into Upper Vein, Percutaneous Approach (ICD-10-PCS; 2019-10-23)
PROC: 05HY33Z Insertion of Infusion Device into Upper Vein, Percutaneous Approach (ICD-10-PCS; 2019-10-25)
PROC: 0BH18EZ Insertion of Endotracheal Airway into Trachea, Via Natural or Artificial Opening Endoscopic (ICD-10-PCS; 2019-10-28)
PROC: 5A1945Z Respiratory Ventilation, 24-96 Consecutive Hours (ICD-10-PCS; 2019-10-28)
PROC: 5A12012 Performance of Cardiac Output, Single, Manual (ICD-10-PCS; 2019-10-30)
DX: A41.89 Other specified sepsis (principal); U07.1 COVID-19; N17.0 Acute kidney failure with tubular necrosis; J96.01 Acute respiratory failure with hypoxia; G82.50 Quadriplegia, unspecified; E43 Unspecified severe protein-calorie malnutrition; E22.2 Syndrome of inappropriate secretion of antidiuretic hormone; D68.69 Other thrombophilia; G93.41 Metabolic encephalopathy; L89.893 Pressure ulcer of other site, stage 3; L89.154 Pressure ulcer of sacral region, stage 4; N17.9 Acute kidney failure, unspecified; E11.22 Type 2 diabetes mellitus with diabetic chronic kidney disease; N18.9 Chronic kidney disease, unspecified; E83.42 Hypomagnesemia; E86.0 Dehydration; G20 Parkinson's disease; G89.4 Chronic pain syndrome; I48.91 Unspecified atrial fibrillation; Z95.0 Presence of cardiac pacemaker; Z87.440 Personal history of urinary (tract) infections; Z79.4 Long term (current) use of insulin; Z88.0 Allergy status to penicillin; E87.0 Hyperosmolality and hypernatremia; E87.6 Hypokalemia; F32.9 Major depressive disorder, single episode, unspecified; F41.9 Anxiety disorder, unspecified; K21.9 Gastro-esophageal reflux disease without esophagitis; J12.89 Other viral pneumonia; I13.10 Hypertensive heart and chronic kidney disease without heart failure, with stage 1 through stage 4 chronic kidney disease, or unspecified chronic kidney disease; D63.8 Anemia in other chronic diseases classified elsewhere; E11.65 Type 2 diabetes mellitus with hyperglycemia; E86.9 Volume depletion, unspecified; N31.9 Neuromuscular dysfunction of bladder, unspecified; N39.0 Urinary tract infection, site not specified; B96.89 Other specified bacterial agents as the cause of diseases classified elsewhere; E88.09 Other disorders of plasma-protein metabolism, not elsewhere classified; Z22.322 Carrier or suspected carrier of Methicillin resistant Staphylococcus aureus; L98.8 Other specified disorders of the skin and subcutaneous tissue; Z68.25 Body mass index [BMI] 25.0-25.9, adult; K59.2 Neurogenic bowel, not elsewhere classified; Z91.81 History of falling; Z88.1 Allergy status to other antibiotic agents
CPT/HCPCS: 36415; 36600; 71045-TC; 80048-TC; 80053-TC; 80061-TC; 80076-TC; 80150; 81000-TC; 82550-TC; 82728-TC; 82803-TC; 82962-TC; 83605-TC; 83615-TC; 83735-TC; 83880; 84100-TC; 84153-TC; 84154-TC; 84443-TC; 84484-TC; 84550-TC; 85025-TC; 85378-TC; 85652-TC; 85730-TC; 86140-TC; 86480; 87040-TC; 87070-TC; 87081-TC; 87086-TC; 87186-TC; 87806; 87899; 93307-TC; 94002-TC; 94640-TC; 99082-TC; A4216; A6248; A6253; A6403; A6407; G0378; J0171; J0278; J1200; J1650; J1815; J1956; J2920; J3262; J3370; J3475; J3480; J3490; J7030; J7040; J7042; J7050; J7060